=== PATIENT | male | born 1985 | race Caucasian/White ===

== ENCOUNTER 2016-08-19 10:52 | Observation (INO) | payer SELFPAY ==
[~2016-08-19] VITALS: Ht 182.9 cm; Wt 98.9 kg
[~2016-08-19 10:52] MED LIST: CYCL10TA2 PO; DOXY100T PO; HYDR25TA9 PO; IBUP-1007 PO; NAPR500T8 PO; NAPR550T PO; ORPH100T PO
[2016-08-19] MEDS ORDERED: MORPHINE SULFATE 2 MG/ML DISP.SYRIN. IV/SQ PRN (12:45)
[2016-08-19] MEDS ORDERED: NITROGLYCERIN SUBLINGUAL 0.4 MG BOTTLE OF 25. SL PRN (12:45)
--- NOTE | 2016-08-19 12:45 | PHYS DOC ---
Past Medical History Past Medical History: Hypertension, STD Additional Past Medical Histor: HERPES Past Surgical History: No Surgical History Additional Past Surgical Histo: WISDOM TEETH Alcohol Use: Occasionally Drug Use: Marijuana Adult General Chief Complaint Chief Complaint: MULTIPLE COMPLAINTS HPI HPI Patient is a 31 year old male who presents with right armpit discomfort and chest pain for the last 2 days. He states the pain is constant and occasionally gets worse when he gets worse it's severe last 60-90 seconds and then it resolves back to his baseline pain. He states is on the left side doesn't radiate, he doesn't feel nauseated or vomiting or shortness of breath associated with this. He also complains about left knee pain is been going on for last several days. He has a family history with his grandfather having heart disease and his mom have an high blood pressure. He denies any tobacco abuse he does smoke marijuana occasionally and drinks occasionally. He states he does not have a primary care physician and he really doesn't like hospitals her doctors. Review of Systems Review of Systems Constitutional: Denies fever or chills [] Eyes: Denies change in visual acuity, redness, or eye pain [] HENT: Denies nasal congestion or sore throat [] Respiratory: Denies cough or shortness of breath [] Cardiovascular: No additional information not addressed in HPI [] GI: Denies abdominal pain, nausea, vomiting, bloody stools or diarrhea [] : Denies dysuria or hematuria [] Musculoskeletal: Denies back pain or joint pain [] Integument: Denies rash or skin lesions [] Neurologic: Denies headache, focal weakness or sensory changes [] Endocrine: Denies polyuria or polydipsia [] Current Medications Current Medications Current Medications Medications (Trade) Dose Ordered Sig/Serina Start Time Stop Time Status Last Admin Dose Admin Morphine Sulfate 2 mg STK-MED ONCE 08/19/16 13:13 08/19/16 13:20 DC Nitroglycerin (Nitrostat) 0.4 mg STK-MED ONCE 08/19/16 13:13 08/19/16 13:20 DC Allergies Allergies Allergies Coded Allergies Type Severity Reaction Last Updated Verified No Known Drug Allergies 04/19/14 No Physical Exam Physical Exam Constitutional: Well developed, well nourished, no acute distress, non-toxic appearance. [] HENT: Normocephalic, atraumatic, bilateral external ears normal, oropharynx moist, no oral exudates, nose normal. [] Eyes: PERRLA, EOMI, conjunctiva normal, no discharge. [] Neck: Normal range of motion, no tenderness, supple, no stridor. [] Cardiovascular:Heart rate regular rhythm, no murmur [] Lungs & Thorax: Bilateral breath sounds clear to auscultation [] Abdomen: Bowel sounds normal, soft, no tenderness, no masses, no pulsatile masses. [] Skin: Warm, dry, no erythema, no rash. [] Back: No tenderness, no CVA tenderness. [] Extremities: No tenderness, enlarged lymphadenopathy in the right axilla, no erythema noted Yenifer no cyanosis, no clubbing, ROM intact, no edema. [] Neurologic: Alert and oriented X 3, normal motor function, normal sensory function, no focal deficits noted. [] Psychologic: Affect normal, judgement normal, mood normal. [] Current Patient Data Vital Signs Vital Signs Date Time Temp Pulse Resp B/P (MAP) Pulse Ox O2 Delivery O2 Flow Rate FiO2 08/19/16 14:30 70 16 147/88 (107) 98 Room Air 08/19/16 11:37 97.6 97.6 Lab Values Laboratory Tests Test 08/19/16 12:55 White Blood Count 7.1 x10^3/uL (4.0-11.0) Red Blood Count 5.10 x10^6/uL (4.30-5.70) Hemoglobin 15.1 g/dL (13.0-17.5) Hematocrit 43.6 % (39.0-53.0) Mean Corpuscular Volume 86 fL (79-100) Mean Corpuscular Hemoglobin 30 pg (25-35) Mean Corpuscular Hemoglobin Concent 35 g/dL (31-37) Red Cell Distribution Width 13.2 % (11.5-14.5) Platelet Count 255 x10^3/uL (140-400) Neutrophils (%) (Auto) 62 % (31-73) Lymphocytes (%) (Auto) 25 % (24-48) Monocytes (%) (Auto) 8 % (0-9) Eosinophils (%) (Auto) 4 % (0-3) H Basophils (%) (Auto) 1 % (0-3) Neutrophils # (Auto) 4.4 x10^3uL (1.8-7.7) Lymphocytes # (Auto) 1.8 x10^3/uL (1.0-4.8) Monocytes # (Auto) 0.5 x10^3/uL (0.0-1.1) Eosinophils # (Auto) 0.3 x10^3/uL (0.0-0.7) Basophils # (Auto) 0.1 x10^3/uL (0.0-0.2) Urine Collection Type Unknown Urine Color Yellow Urine Clarity Clear Urine pH 6.5 Urine Specific Rus[place] >=1.030 Urine Protein Negative mg/dL (NEG-TRACE) Urine Glucose (UA) Negative mg/dL (NEG) Urine Ketones (Stick) Negative mg/dL (NEG) Urine Blood Negative (NEG) Urine Nitrite Negative (NEG) Urine Bilirubin Negative (NEG) Urine Urobilinogen Dipstick 2.0 mg/dL (0.2 mg/dL) Urine Leukocyte Esterase Negative (NEG) Urine RBC 0 /HPF (0-2) Urine WBC 0 /HPF (0-4) Urine Squamous Epithelial Cells None /LPF Urine Bacteria 0 /HPF (0-FEW) Urine Mucus Slight /LPF Sodium Level 141 mmol/L (136-145) Potassium Level 4.0 mmol/L (3.5-5.1) Chloride Level 103 mmol/L (98-107) Carbon Dioxide Level 30 mmol/L (21-32) Anion Gap 8 (6-14) Blood Urea Nitrogen 15 mg/dL (8-26) Creatinine 0.9 mg/dL (0.7-1.3) Estimated GFR (Cockcroft-Gault) 97.8 Glucose Level 107 mg/dL (70-99) H Calcium Level 9.3 mg/dL (8.5-10.1) Magnesium Level 2.0 mg/dL (1.8-2.4) Total Bilirubin 0.8 mg/dL (0.2-1.0) Direct Bilirubin 0.1 mg/dL (0.0-0.2) Aspartate Amino Transferase (AST) 18 U/L (15-37) Alanine Aminotransferase (ALT) 48 U/L (16-63) Alkaline Phosphatase 85 U/L (46-116) Creatine Kinase 117 U/L (39-308) Creatine Kinase MB (Mass) 0.7 ng/mL (0.0-3.6) Creatine Kinase MB Relative Index 0.6 % (0-4) Troponin I Quantitative < 0.017 ng/mL (0.000-0.055) XE-Cby-I-Type Natriuretic Peptide 11 pg/mL (0-124) Total Protein 7.5 g/dL (6.4-8.2) Albumin 4.0 g/dL (3.4-5.0) Lipase 181 U/L (73-393) Thyroid Stimulating Hormone (TSH) 0.930 uIU/mL (0.358-3.74) Urine Opiates Screen Neg (NEG) Urine Methadone Screen Neg (NEG) Urine Barbiturates Neg (NEG) Urine Phencyclidine Screen Neg (NEG) Urine Amphetamine/Methamphetamine Neg (NEG) Urine Benzodiazepines Screen Neg (NEG) Urine Cocaine Screen Neg (NEG) Urine Cannabinoids Screen Pos (NEG) Urine Ethyl Alcohol Neg (NEG) Laboratory Tests 08/19/16 12:55 Laboratory Tests 08/19/16 12:55 EKG EKG EKG shows sinus rhythm with a rate of [address] elevations or T- wave inversions, normal axis, QTC Radiology/Procedures Radiology/Procedures [place] [id number] IMAGING REPORT Signed PATIENT: KAYA CASEY ACCOUNT: [id number] : 1985 LOCATION: ER AGE: 31 SEX: M EXAM STATUS: REG ER ORD. PHYSICIAN: ROSE CARRASQUILLO MD REASON: pain PROCEDURE: KNEE LEFT 3V Indication: Chronic pain. Time of exam 1355 hours. Alignment is normal. The joint spaces are well maintained. Articular surfaces are smooth. No fracture, dislocation or effusion is seen. Impression: No acute abnormality is detected. DICTATED and SIGNED BY: DEAN CHI MD DATE: 08/19/16 140 CC: ROSE CARRASQUILLO MD; NO PCP ~ [address] [phone] IMAGING REPORT Signed PATIENT: KAYA CASEY ACCOUNT: [id number] : 1985 LOCATION: ER AGE: 31 SEX: M EXAM STATUS: REG ER ORD. PHYSICIAN: ROSE CARRASQUILLO MD REASON: chest pain PROCEDURE: PORTABLE CHEST 1V Indication: Chest pain. Time of exam 1305 hours. FINDINGS: The heart size is normal. The lungs are clear. No pleural effusion or pneumothorax is identified. The pulmonary vascularity is normal. IMPRESSION: No acute abnormality detected. DICTATED and SIGNED BY: DEAN CHI MD DATE: 08/19/16 1401 CC: ROSE CARRASQUILLO MD; NO PCP ~ Impressions: Intermittent chest pain Course & Med Decision Making Course & Med Decision Making Pertinent Labs and Imaging studies reviewed. (See chart for details) Patient is a family history of coronary disease and has never been worked up. He 's been having intermittent episodes and over the last 2 days his become more intense. EKG, labs, chest x-ray nonacute. Patient is being admitted for rule out. Aspirin has been ordered. Dragon Disclaimer Dragon Disclaimer This electronic medical record was generated, in whole or in part, using a voice recognition dictation system. Departure Departure Impression: Primary Impression: Chest pain Disposition: ADMITTED INPATIENT Admitting Physician: Sobeida Merida Condition: STABLE Referrals: NO PCP (PCP) Problem Qualifiers Primary Impression: Chest pain Chest pain type: unspecified Qualified Codes: R07.9 - Chest pain, unspecified ROSE CARRASQUILLO MD Aug 19, 2016 12:45
[2016-08-19 13:13] LABS: BASO # 0.1 x10^3/uL (0.0-0.2); BASO % 1 % (0-3); EOS % 4 % (0-3); HEMATOCRIT 43.6 % (39.0-53.0); HEMOGLOBIN 15.1 g/dL (13.0-17.5); LYMPH # 1.8 x10^3/uL (1.0-4.8); LYMPH % 25 % (24-48); MEAN CORPUSCULAR HEMOGLOBIN 30 pg (25-35); MEAN CORPUSCULAR HGB CONC 35 g/dL (31-37); MEAN CORPUSCULAR VOLUME 86 fL (79-100); MONO % 8 % (0-9); NEUT % 62 % (31-73); PLATELET COUNT 255 x10^3/uL (140-400); RED CELL DISTRIBUTION WIDTH 13.2 % (11.5-14.5); WHITE BLOOD COUNT 7.1 x10^3/uL (4.0-11.0)
[2016-08-19] MEDS ORDERED: NITROGLYCERIN SUBLINGUAL 0.4 MG BOTTLE OF 25. SL ONE (13:13)
[2016-08-19] MEDS ORDERED: MORPHINE SULFATE 2 MG/ML DISP.SYRIN. ONE (13:13)
[2016-08-19 13:17] LABS: BILIRUBIN,URINE NEGATIVE (NEG); GLUCOSE,URINE NEGATIVE (NEG); NITRITE,URINE NEGATIVE (NEG); PH,URINE 6.5; PROTEIN,URINE NEGATIVE (NEG-TRACE)
[2016-08-19 13:20] LABS: BARBITURATES NEG (NEG); BENZODIAZEPINES NEG (NEG); CANNABINOIDS POS (NEG); COCAINE NEG (NEG); METHADONE NEG (NEG); OPIATES NEG (NEG); PHENCYCLIDINE NEG (NEG)
[2016-08-19 13:24] LABS: CALCIUM 9.3 mg/dL (8.5-10.1); CREATININE 0.9 mg/dL (0.7-1.3); GFR 97.8
[2016-08-19 13:26] LABS: DIRECT BILIRUBIN 0.1 mg/dL (0.0-0.2); TOTAL BILIRUBIN 0.8 mg/dL (0.2-1.0); TOTAL PROTEIN 7.5 g/dL (6.4-8.2)
[2016-08-19 13:35] LABS: BACTERIA,URINE 0 /HPF (0-FEW); RBC,URINE 0 /HPF (0-2); WBC,URINE 0 /HPF (0-4)
[2016-08-19 13:37] LABS: CKMB MASS 0.7 ng/mL (0.0-3.6)
--- NOTE | 2016-08-19 13:47 | EKG ---
[facility] [address] [place] [address] Test Date: 2016-08-19 Test Time: 12:27:32 Pat Name: KAYA CASEY Department: Room: Gender: M [employer]: : 1985 Requested By: ROSE CARRASQUILLO Order Number: [id number] Reading MD: Radha Tom Measurements Intervals [place] Rate: 57 P: 34 [place]: 162 QRS: 12 QRSD: 102 T: 24 QT: 386 QTc: 378 Interpretive Statements SINUS RHYTHM INCOMPLETE RIGHT BUNDLE BRANCH BLOCK OTHERWISE NORMAL ECG Electronically Signed On 08-19-2016 21:06:01 CDT by Radha Tom
--- NOTE | 2016-08-19 14:04 | RAD ---
Indication: Chest pain. Time of exam 1305 hours. FINDINGS: The heart size is normal. The lungs are clear. No pleural effusion or pneumothorax is identified. The pulmonary vascularity is normal. IMPRESSION: No acute abnormality detected.
--- NOTE | 2016-08-19 14:10 | RAD ---
Indication: Chronic pain. Time of exam 1355 hours. Alignment is normal. The joint spaces are well maintained. Articular surfaces are smooth. No fracture, dislocation or effusion is seen. Impression: No acute abnormality is detected.
[2016-08-19] MEDS ORDERED: ASPIRIN 325 MG TABLET PO ONE (15:15)
[2016-08-19] MEDS ORDERED: ONDANSETRON PF 4 MG/2 ML VIAL. IV PRN (15:15)
[2016-08-19 17:44] VITALS: BP 160/100
[2016-08-19] MEDS: MORPHINE SULFATE 2 MG/ML DISP.SYRIN. IV PRN ×2 (18:05→23:02)
--- NOTE | 2016-08-19 18:07 | PDOC1 ---
History and Physical Date of Admission Date of Admission DATE: 08/19/16 TIME: 18:06 Identification/Chief Complaint Chief Complaint chest pain Problems: Source Source: Chart review, Patient History of Present Illness History of Present Illness Mr. Elder is a 31 year old male; admit with acute chest pain. Pain started across the right armpit for 2 days. intermittent episodes, sometimes debilitating, and he cannot move for a few minutes due to severe pain. Some episodes for a few minutes, this has happened a couple times this year, he cannot relate to eating or exertion, or supine or time. He does admit to extra stress recently, working 2 jobs, not sleeping well, and anxiety has been high, 2 family members report severe anxiety problems for themselves no diaphoresis, no nausea, no abd pain, no primary care, has not had prior med problems, but has been to the ER here a few times with chest pain and DC home, Past Medical History Cardiovascular: No pertinent hx Pulmonary: No pertinent hx GI: No pertinent hx Heme/Onc: No pertinent hx Hepatobiliary: No pertinent hx Psych: No pertinent hx Musculoskeletal: low back pain Rheumatologic: No pertinent hx Past Surgical History Past Surgical History: No pertinent history Family History Family History: Adopted (at age 7, but has contact with family, strong fam history of CAD, and anxiety) Social History Smoke: No ALCOHOL: none Drugs: Marijuana Current Problem List Problem List Problems Medical Problems: (1) Chest pain Status: Acute Problems: Current Medications Current Medications Current Medications Nitroglycerin (Nitrostat) 0.4 mg PRN Q5MIN PRN SL CP RATING > 1/10 Last administered on 08/19/16 13:21; Start 08/19/16 at 12:45; Stop 08/20/16 at 12:44 Morphine Sulfate 2 mg PRN Q15MIN PRN IV/SQ PAIN GREATER THAN 3/10 Last administered on 08/19/16 13:16; Start 08/19/16 at 12:45; Stop 08/20/16 at 12:44 Nitroglycerin (Nitrostat) 0.4 mg STK-MED ONCE SL ; Start 08/19/16 at 13:13; Stop 08/19/16 at 13:20; Status DC Morphine Sulfate 2 mg STK-MED ONCE .ROUTE ; Start 08/19/16 at 13:13; Stop at 13:20; Status DC Aspirin (Gregory Aspirin) 325 mg 1X ONCE PO Last administered on 08/19/16t 15:20 ; Start 08/19/16 at 15:15; Stop 08/19/16 at 15:19; Status DC Ondansetron HCl (Zofran) 4 mg PRN Q8HRS PRN IV NAUSEA/VOMITING; Start 08/19/16 at 15:15; Stop 08/20/16 at 15:14 Morphine Sulfate 2 mg PRN Q2HR PRN IV PAIN; Start 08/19/16 at 15:15; Stop 08/20 at 15:14 Active Scripts Active Cyclobenzaprine Hcl 10 Mg Tablet 1 Tab PO TID Naproxen 500 Mg Tablet.dr 1 Tab PO BID Doxycycline Hyclate 100 Mg Tablet 1 Tab PO BID Orphenadrine Citrate 100 Mg Tablet.er 100 Mg PO Q12HR Anaprox Ds (Naproxen Sodium) 550 Mg Tablet 550 Mg PO Q12HR Ibuprofen 600 Mg Tablet 600 Mg PO PRN Q6HRS PRN Reported Hydrochlorothiazide Tablet (Hydrochlorothiazide) 25 Mg Tablet 1 Tab PO DAILY Allergies Allergies: Coded Allergies: No Known Drug Allergies (Unverified , 04/19/14) ROS General: No: Chills, Night Sweats, Fatigue, Malaise, Appetite, Other PSYCHOLOGICAL ROS: YES: Anxiety, Sexual abuse, Sleep disturbances, No: Behavioral Disorder, Concentration difficultie, Decreased libido, Depression, Disorientation, Hallucinations, Hostility, Irritablity, Memory difficulties, Mood Swings, Obsessive thoughts Eyes: No Blurry vision, No Decreased vision, No Double vision, No Dry eyes, No Excessive tearing, No Eye Pain, No Itchy Eyes, No Loss of vision, No Photophobia , No Scotomata, No Uses contacts, No Uses glasses, No Other HEENT: YES: Heacaches, No: Visual Changes, Hearing change, Nasal congestion, Nasal discharge, Oral lesions, Sinus pain, Sore Throat, Epistaxis, Sneezing, Snoring, Tinnitus, Vertigo, Vocal changes, Other Respiratory: No: Cough, Hemoptysis, Orthopnea, Pleuritic Pain, Shortness of breath, SOB with excertion, Sputum Changes, Stridor, Tachypnea, Wheezing, Other Cardiovascular: yes Chest Pain, No Palpitations, No Orthopnea, No Paroxysmal Noc. Dyspnea, No Edema, No Lt Headedness, No Other Gastrointestinal: No Nausea, No Vomiting, No Abdominal Pain, No Diarrhea, No Constipation, No Melena, No Hematochezia, No Other Genitourinary: No Dysuria, No Frequency, No Incontinence, No Hematuria, No Retention, No Discharge, No Urgency, No Pain, No Flank Pain, No Other, No , No , No , No , No , No , No Musculoskeletal: Yes Joint Pain (knee and back), Yes Joint Stiffness, No Gait Disturbance, No Joint Swelling, No Muscle Pain, No Muscular Weakness , No Pain In:, No Swelling In:, No Other Neurological: No Behavorial Changes, No Bowel/Bladder ControlChng, No Confusion , No Dizziness, No Gait Disturbance, No Headaches, No Impaired Coord/balance, No Memory Loss, No Numbness/Tingling, No Seizures, No Speech Problems, No Tremors, No Visual Changes, No Weakness, No Other Skin: Yes Dry Skin, No Eczema, No Hair Changes, No Lumps, No Mole Changes, No Mottling, No Nail Changes, No Pruritus, No Rash, No Skin Lesion Changes, No Other, No Acne Physical Exam Physical Exam left bicep tendon tender, left pec muscle tighter than right, General: Alert, Oriented X3, Cooperative, No acute distress HEENT: Atraumatic, PERRLA, EOMI, Mucous membr. moist/pink Lungs: Clear to auscultation, Normal air movement Heart: no gallops, no murmurs Abdomen: Normal bowel sounds, Soft Rectal Exam: not examined Extremities: No edema Skin: No breakdown Neuro: Normal gait, Normal speech, Strength at 5/5 X4 ext (above average strength for age), Normal tone, Sensation intact Psych/Mental Status: Mood NL Vitals Vitals Vital Signs Date Time Temp Pulse Resp B/P (MAP) Pulse Ox O2 Delivery O2 Flow Rate FiO2 08/19/16 17:44 97.7 67 18 160/100 (120) 91 Room Air 97.7 Labs Labs Laboratory Tests Test 08/19/16 12:55 White Blood Count 7.1 x10^3/uL (4.0-11.0) Red Blood Count 5.10 x10^6/uL (4.30-5.70) Hemoglobin 15.1 g/dL (13.0-17.5) Hematocrit 43.6 % (39.0-53.0) Mean Corpuscular Volume 86 fL (79-100) Mean Corpuscular Hemoglobin 30 pg (25-35) Mean Corpuscular Hemoglobin Concent 35 g/dL (31-37) Red Cell Distribution Width 13.2 % (11.5-14.5) Platelet Count 255 x10^3/uL (140-400) Neutrophils (%) (Auto) 62 % (31-73) Lymphocytes (%) (Auto) 25 % (24-48) Monocytes (%) (Auto) 8 % (0-9) Eosinophils (%) (Auto) 4 % (0-3) Basophils (%) (Auto) 1 % (0-3) Neutrophils # (Auto) 4.4 x10^3uL (1.8-7.7) Lymphocytes # (Auto) 1.8 x10^3/uL (1.0-4.8) Monocytes # (Auto) 0.5 x10^3/uL (0.0-1.1) Eosinophils # (Auto) 0.3 x10^3/uL (0.0-0.7) Basophils # (Auto) 0.1 x10^3/uL (0.0-0.2) Urine Collection Type Unknown Urine Color Yellow Urine Clarity Clear Urine pH 6.5 Urine Specific [place] >=1.030 Urine Protein Negative mg/dL (NEG-TRACE) Urine Glucose (UA) Negative mg/dL (NEG) Urine Ketones (Stick) Negative mg/dL (NEG) Urine Blood Negative (NEG) Urine Nitrite Negative (NEG) Urine Bilirubin Negative (NEG) Urine Urobilinogen Dipstick 2.0 mg/dL (0.2 mg/dL) Urine Leukocyte Esterase Negative (NEG) Urine RBC 0 /HPF (0-2) Urine WBC 0 /HPF (0-4) Urine Squamous Epithelial Cells None /LPF Urine Bacteria 0 /HPF (0-FEW) Urine Mucus Slight /LPF Sodium Level 141 mmol/L (136-145) Potassium Level 4.0 mmol/L (3.5-5.1) Chloride Level 103 mmol/L (98-107) Carbon Dioxide Level 30 mmol/L (21-32) Anion Gap 8 (6-14) Blood Urea Nitrogen 15 mg/dL (8-26) Creatinine 0.9 mg/dL (0.7-1.3) Estimated GFR (Cockcroft-Gault) 97.8 Glucose Level 107 mg/dL (70-99) Calcium Level 9.3 mg/dL (8.5-10.1) Magnesium Level 2.0 mg/dL (1.8-2.4) Total Bilirubin 0.8 mg/dL (0.2-1.0) Direct Bilirubin 0.1 mg/dL (0.0-0.2) Aspartate Amino Transf (AST/SGOT) 18 U/L (15-37) Alanine Aminotransferase (ALT/SGPT) 48 U/L (16-63) Alkaline Phosphatase 85 U/L (46-116) Creatine Kinase 117 U/L (39-308) Creatine Kinase MB (Mass) 0.7 ng/mL (0.0-3.6) Creatine Kinase MB Relative Index 0.6 % (0-4) Troponin I Quantitative < 0.017 ng/mL (0.000-0.055) UT-Ptd-O-Type Natriuretic Peptide 11 pg/mL (0-124) Total Protein 7.5 g/dL (6.4-8.2) Albumin 4.0 g/dL (3.4-5.0) Lipase 181 U/L (73-393) Thyroid Stimulating Hormone (TSH) 0.930 uIU/mL (0.358-3.74) Urine Opiates Screen Neg (NEG) Urine Methadone Screen Neg (NEG) Urine Barbiturates Neg (NEG) Urine Phencyclidine Screen Neg (NEG) Urine Amphetamine/Methamphetamine Neg (NEG) Urine Benzodiazepines Screen Neg (NEG) Urine Cocaine Screen Neg (NEG) Urine Cannabinoids Screen Pos (NEG) Urine Ethyl Alcohol Neg (NEG) Laboratory Tests Test 08/19/16 12:55 White Blood Count 7.1 x10^3/uL (4.0-11.0) Red Blood Count 5.10 x10^6/uL (4.30-5.70) Hemoglobin 15.1 g/dL (13.0-17.5) Hematocrit 43.6 % (39.0-53.0) Mean Corpuscular Volume 86 fL (79-100) Mean Corpuscular Hemoglobin 30 pg (25-35) Mean Corpuscular Hemoglobin Concent 35 g/dL (31-37) Red Cell Distribution Width 13.2 % (11.5-14.5) Platelet Count 255 x10^3/uL (140-400) Neutrophils (%) (Auto) 62 % (31-73) Lymphocytes (%) (Auto) 25 % (24-48) Monocytes (%) (Auto) 8 % (0-9) Eosinophils (%) (Auto) 4 % (0-3) Basophils (%) (Auto) 1 % (0-3) Neutrophils # (Auto) 4.4 x10^3uL (1.8-7.7) Lymphocytes # (Auto) 1.8 x10^3/uL (1.0-4.8) Monocytes # (Auto) 0.5 x10^3/uL (0.0-1.1) Eosinophils # (Auto) 0.3 x10^3/uL (0.0-0.7) Basophils # (Auto) 0.1 x10^3/uL (0.0-0.2) Urine Collection Type Unknown Urine Color Yellow Urine Clarity Clear Urine pH 6.5 Urine Specific Weston >=1.030 Urine Protein Negative mg/dL (NEG-TRACE) Urine Glucose (UA) Negative mg/dL (NEG) Urine Ketones (Stick) Negative mg/dL (NEG) Urine Blood Negative (NEG) Urine Nitrite Negative (NEG) Urine Bilirubin Negative (NEG) Urine Urobilinogen Dipstick 2.0 mg/dL (0.2 mg/dL) Urine Leukocyte Esterase Negative (NEG) Urine RBC 0 /HPF (0-2) Urine WBC 0 /HPF (0-4) Urine Squamous Epithelial Cells None /LPF Urine Bacteria 0 /HPF (0-FEW) Urine Mucus Slight /LPF Sodium Level 141 mmol/L (136-145) Potassium Level 4.0 mmol/L (3.5-5.1) Chloride Level 103 mmol/L (98-107) Carbon Dioxide Level 30 mmol/L (21-32) Anion Gap 8 (6-14) Blood Urea Nitrogen 15 mg/dL (8-26) Creatinine 0.9 mg/dL (0.7-1.3) Estimated GFR (Cockcroft-Gault) 97.8 Glucose Level 107 mg/dL (70-99) Calcium Level 9.3 mg/dL (8.5-10.1) Magnesium Level 2.0 mg/dL (1.8-2.4) Total Bilirubin 0.8 mg/dL (0.2-1.0) Direct Bilirubin 0.1 mg/dL (0.0-0.2) Aspartate Amino Transf (AST/SGOT) 18 U/L (15-37) Alanine Aminotransferase (ALT/SGPT) 48 U/L (16-63) Alkaline Phosphatase 85 U/L (46-116) Creatine Kinase 117 U/L (39-308) Creatine Kinase MB (Mass) 0.7 ng/mL (0.0-3.6) Creatine Kinase MB Relative Index 0.6 % (0-4) Troponin I Quantitative < 0.017 ng/mL (0.000-0.055) TZ-Poz-O-Type Natriuretic Peptide 11 pg/mL (0-124) Total Protein 7.5 g/dL (6.4-8.2) Albumin 4.0 g/dL (3.4-5.0) Lipase 181 U/L (73-393) Thyroid Stimulating Hormone (TSH) 0.930 uIU/mL (0.358-3.74) Urine Opiates Screen Neg (NEG) Urine Methadone Screen Neg (NEG) Urine Barbiturates Neg (NEG) Urine Phencyclidine Screen Neg (NEG) Urine Amphetamine/Methamphetamine Neg (NEG) Urine Benzodiazepines Screen Neg (NEG) Urine Cocaine Screen Neg (NEG) Urine Cannabinoids Screen Pos (NEG) Urine Ethyl Alcohol Neg (NEG) VTE Prophylaxis Ordered VTE Prophylaxis Devices: No (obs) VTE Pharmacological Prophylaxi: No Assessment/Plan Assessment/Plan chest pain w/ pressure, intermittent, strong family history of CAD, left shoulder pain to bicep tendon left elbow pain to ulnar nerve worse than on right arm, some tingling in left hand occasionally anxiety, fam. history of anxiety D/O SHAWNEE KATZ MD Aug 19, 2016 18:07
[2016-08-19] MEDS ORDERED: IBUPROFEN 600 MG TABLET. PO ONE (18:30)
[2016-08-19 19:00] VITALS: BP 137/68
[2016-08-19 23:00] VITALS: BP 131/71
[2016-08-20 03:00] VITALS: BP 132/83
[2016-08-20 05:04] LABS: BASO % 0 % (0-3); EOS % 6 % (0-3); HEMATOCRIT 41.7 % (39.0-53.0); HEMOGLOBIN 14.2 g/dL (13.0-17.5); LYMPH # 2.6 x10^3/uL (1.0-4.8); LYMPH % 42 % (24-48); MEAN CORPUSCULAR HEMOGLOBIN 29 pg (25-35); MEAN CORPUSCULAR HGB CONC 34 g/dL (31-37); MEAN CORPUSCULAR VOLUME 86 fL (79-100); MONO % 9 % (0-9); NEUT % 43 % (31-73); PLATELET COUNT 221 x10^3/uL (140-400); RED BLOOD COUNT 4.84 x10^6/uL (4.30-5.70); RED CELL DISTRIBUTION WIDTH 13.3 % (11.5-14.5); WHITE BLOOD COUNT 6.1 x10^3/uL (4.0-11.0)
[2016-08-20 05:23] LABS: CHOLESTEROL/HDL RATIO 4.7
[2016-08-20 05:47] LABS: CALCIUM 8.9 mg/dL (8.5-10.1); CREATININE 0.8 mg/dL (0.7-1.3)
[2016-08-20 07:00] VITALS: BP 140/86
[2016-08-20] MEDS: MORPHINE SULFATE 2 MG/ML DISP.SYRIN. IV PRN (08:12)
[2016-08-20] MEDS ORDERED: MORPHINE SULFATE 2 MG/ML DISP.SYRIN. IV PRN (09:45)
[2016-08-20] MEDS ORDERED: ACETAMINOPHEN 325 MG TABLET. PO PRN (09:45)
[2016-08-20] MEDS ORDERED: DOCUSATE SODIUM 100 MG CAPSULE. PO PRN (09:45)
[2016-08-20] MEDS ORDERED: hydrALAZINE 20 MG/ML VIAL. IVP PRN (09:45)
[2016-08-20] MEDS ORDERED: ONDANSETRON PF 4 MG/2 ML VIAL. IV PRN (09:45)
[2016-08-20] MEDS ORDERED: traMADol 50 MG TABLET PO PRN (09:45)
[2016-08-20 10:40] VITALS: BP 124/82
--- NOTE | 2016-08-20 10:46 | PDOC2 ---
CARDIAC CONSULT DATE OF CONSULT Date of Consult DATE: 08/20/16 TIME: 10:43 REASON FOR CONSULT Reason for Consult: Chest Pain REFERRING PHYSICIAN Referring Physician: Dr. Merida SOURCE Source: Chart review, Patient HISTORY OF PRESENT ILLNESS HISTORY OF PRESENT ILLNESS This is a 31 yo male who presented with complaints of chest pain. Patient reports pain has been occurring intermittently for the last year and a half or so. Located in the central chest and also in the left axillary region. Describes as stabbing in nature. Associated with shortness of breath, vision changes, and palpitations. No dizziness, diaphoresis, or nausea/vomiting. No clear precipitating factors. No exacerbating factors. Episodes generally last a couple of minutes and seem to resolve by "crouching down in a ball." Reports increased stress has been working three jobs to make ends meet. Has 3 children, which he does not presently have custody of. PAST MEDICAL HISTORY Cardiovascular: HTN Pulmonary: No pertinent hx GI: No pertinent hx Heme/Onc: No pertinent hx Hepatobiliary: No pertinent hx Psych: No pertinent hx Rheumatologic: No pertinent hx Infectious disease: No pertinent hx ENT: No pertinent hx Renal/: No pertinent hx Endocrine: No pertinent hx Dermatology: No pertinent hx PAST SURGICAL HISTORY Past Surgical History: No pertinent history FAMILY HISTORY Family History: Diabetes, Hypertension SOCIAL HISTORY Smoke: No ALCOHOL: none Drugs: Marijuana Lives: Alone CURRENT MEDICATIONS CURRENT MEDICATIONS Current Medications Medications (Trade) Dose Ordered Sig/Serina Route PRN Reason Start Time Stop Time Status Last Admin Dose Admin Nitroglycerin (Nitrostat) 0.4 mg PRN Q5MIN PRN SL CP RATING > 1/10 08/19/16 12:45 08/20/16 12:44 08/19/16 13:21 Morphine Sulfate 2 mg PRN Q15MIN PRN IV/SQ PAIN GREATER THAN 3/10 08/19/16 12:45 08/20/16 09:46 DC 08/19/16 13:16 Aspirin (Gregory Aspirin) 325 mg 1X ONCE PO 08/19/16 15:15 08/19/16 15:19 DC 08/19/16 15:20 Ondansetron HCl (Zofran) 4 mg PRN Q8HRS PRN IV NAUSEA/VOMITING 08/19/16 15:15 08/20/16 15:14 08/19/16 18:08 Morphine Sulfate 2 mg PRN Q2HR PRN IV PAIN 08/19/16 15:15 08/20/16 09:46 DC 08/20/16 08:12 Ibuprofen (Motrin) 600 mg 1X ONCE PO 08/19/16 18:30 08/19/16 18:43 DC 08/19/16 20:27 ALLERGIES ALLERGIES: Coded Allergies: No Known Drug Allergies (Unverified , 04/19/14) ROS Review of System 14 point ROS conducted with pertinent positives noted above in HPI. PHYSICAL EXAM General: Alert, Oriented X3, Cooperative, No acute distress HEENT: Atraumatic, Mucous membr. moist/pink Lungs: Clear to auscultation, Normal air movement Heart: Regular rate, Normal S1, Normal S2, No murmurs, Other (left chest/ailla region with tenderness upon palpation) Extremities: No edema, Normal pulses Skin: No breakdown, No significant lesion Neuro: Normal speech, Sensation intact Psych/Mental Status: Mental status NL, Mood NL MUSCULOSKELETAL: Osteoarthritic changes both hands VITALS VITALS Vital Signs Date Time Temp Pulse Resp B/P (MAP) Pulse Ox O2 Delivery O2 Flow Rate FiO2 08/20/16 10:40 97.5 72 18 124/82 (96) 97 Room Air 97.5 LABS Lab: Laboratory Tests Test 08/19/16 12:55 08/19/16 21:20 08/20/16 03:40 White Blood Count 7.1 x10^3/uL (4.0-11.0) 6.1 x10^3/uL (4.0-11.0) Red Blood Count 5.10 x10^6/uL (4.30-5.70) 4.84 x10^6/uL (4.30-5.70) Hemoglobin 15.1 g/dL (13.0-17.5) 14.2 g/dL (13.0-17.5) Hematocrit 43.6 % (39.0-53.0) 41.7 % (39.0-53.0) Mean Corpuscular Volume 86 fL (79-100) 86 fL (79-100) Mean Corpuscular Hemoglobin 30 pg (25-35) 29 pg (25-35) Mean Corpuscular Hemoglobin Concent 35 g/dL (31-37) 34 g/dL (31-37) Red Cell Distribution Width 13.2 % (11.5-14.5) 13.3 % (11.5-14.5) Platelet Count 255 x10^3/uL (140-400) 221 x10^3/uL (140-400) Neutrophils (%) (Auto) 62 % (31-73) 43 % (31-73) Lymphocytes (%) (Auto) 25 % (24-48) 42 % (24-48) Monocytes (%) (Auto) 8 % (0-9) 9 % (0-9) Eosinophils (%) (Auto) 4 % (0-3) 6 % (0-3) Basophils (%) (Auto) 1 % (0-3) 0 % (0-3) Neutrophils # (Auto) 4.4 x10^3uL (1.8-7.7) 2.7 x10^3uL (1.8-7.7) Lymphocytes # (Auto) 1.8 x10^3/uL (1.0-4.8) 2.6 x10^3/uL (1.0-4.8) Monocytes # (Auto) 0.5 x10^3/uL (0.0-1.1) 0.5 x10^3/uL (0.0-1.1) Eosinophils # (Auto) 0.3 x10^3/uL (0.0-0.7) 0.4 x10^3/uL (0.0-0.7) Basophils # (Auto) 0.1 x10^3/uL (0.0-0.2) 0.0 x10^3/uL (0.0-0.2) Urine Collection Type Unknown Urine Color Yellow Urine Clarity Clear Urine pH 6.5 Urine Specific [place] >=1.030 Urine Protein Negative mg/dL (NEG-TRACE) Urine Glucose (UA) Negative mg/dL (NEG) Urine Ketones (Stick) Negative mg/dL (NEG) Urine Blood Negative (NEG) Urine Nitrite Negative (NEG) Urine Bilirubin Negative (NEG) Urine Urobilinogen Dipstick 2.0 mg/dL (0.2 mg/dL) Urine Leukocyte Esterase Negative (NEG) Urine RBC 0 /HPF (0-2) Urine WBC 0 /HPF (0-4) Urine Squamous Epithelial Cells None /LPF Urine Bacteria 0 /HPF (0-FEW) Urine Mucus Slight /LPF Sodium Level 141 mmol/L (136-145) 141 mmol/L (136-145) Potassium Level 4.0 mmol/L (3.5-5.1) 4.0 mmol/L (3.5-5.1) Chloride Level 103 mmol/L (98-107) 105 mmol/L (98-107) Carbon Dioxide Level 30 mmol/L (21-32) 29 mmol/L (21-32) Anion Gap 8 (6-14) 7 (6-14) Blood Urea Nitrogen 15 mg/dL (8-26) 14 mg/dL (8-26) Creatinine 0.9 mg/dL (0.7-1.3) 0.8 mg/dL (0.7-1.3) Estimated GFR (Cockcroft-Gault) 97.8 112.0 Glucose Level 107 mg/dL (70-99) 88 mg/dL (70-99) Calcium Level 9.3 mg/dL (8.5-10.1) 8.9 mg/dL (8.5-10.1) Magnesium Level 2.0 mg/dL (1.8-2.4) Total Bilirubin 0.8 mg/dL (0.2-1.0) Direct Bilirubin 0.1 mg/dL (0.0-0.2) Aspartate Amino Transf (AST/SGOT) 18 U/L (15-37) Alanine Aminotransferase (ALT/SGPT) 48 U/L (16-63) Alkaline Phosphatase 85 U/L (46-116) Creatine Kinase 117 U/L (39-308) Creatine Kinase MB (Mass) 0.7 ng/mL (0.0-3.6) Creatine Kinase MB Relative Index 0.6 % (0-4) Troponin I Quantitative < 0.017 ng/mL (0.000-0.055) < 0.017 ng/mL (0.000-0.055) < 0.017 ng/mL (0.000-0.055) GZ-Nas-U-Type Natriuretic Peptide 11 pg/mL (0-124) Total Protein 7.5 g/dL (6.4-8.2) Albumin 4.0 g/dL (3.4-5.0) Lipase 181 U/L (73-393) Thyroid Stimulating Hormone (TSH) 0.930 uIU/mL (0.358-3.74) Urine Opiates Screen Neg (NEG) Urine Methadone Screen Neg (NEG) Urine Barbiturates Neg (NEG) Urine Phencyclidine Screen Neg (NEG) Urine Amphetamine/Methamphetamine Neg (NEG) Urine Benzodiazepines Screen Neg (NEG) Urine Cocaine Screen Neg (NEG) Urine Cannabinoids Screen Pos (NEG) Urine Ethyl Alcohol Neg (NEG) Triglycerides Level 79 mg/dL (0-150) Cholesterol Level 199 mg/dL (0-200) LDL Cholesterol, Calculated 141 mg/dL (0-100) VLDL Cholesterol, Calculated 16 mg/dL (0-40) Non-HDL Cholesterol Calculated 157 mg/dL (0-129) HDL Cholesterol 42 mg/dL (40-60) Cholesterol/HDL Ratio 4.7 ASSESSMENT/PLAN ASSESSMENT/PLAN 1. Chest pain, atypical; troponin series normal; AMI ruled out. 2. Hypertension; controlled 3. Hyperlipidemia Recommendations Case discussed with primary joss house keeper. Suspect symptoms are anxiety related but given his risk factors, will obtain echocardiogram and stress echo to assess LV function and r/o ischemia Resume HCTZ. Diet/lifestyle modification. Problems: THOMAS RED APRN Aug 20, 2016 10:46
--- NOTE | 2016-08-20 10:47 | PDOC2 ---
CONSULT Date of Consult Date of Consult DATE: 08/20/16 TIME: 10:28 Reason for Consult Reason for Consult: rehab evaluation about his left shoulder and knee pain Referring Physician Referring Physician: Identification/Chief Complaint Chief Complaint Pain left shoulder and chest wall for the last few days and also pain left knee with occasional giving up sensation. 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 Past Medical History Cardiovascular: No pertinent hx Pulmonary: No pertinent hx GI: No pertinent hx Heme/Onc: No pertinent hx Hepatobiliary: No pertinent hx Psych: No pertinent hx Musculoskeletal: low back pain, Other (left knee pain and he used to get steroid injections as he was told by his mother.) Rheumatologic: No pertinent hx Past Surgical History Past Surgical History: No pertinent history Family History Family History: Adopted (at age 7, but has contact with family, strong fam history of CAD, and anxiety) Social History No ALCOHOL: none Drugs: Marijuana Current Problem List Problem List Problems Medical Problems: (1) Chest pain Status: Acute Current Medications Current Medications Current Medications Nitroglycerin (Nitrostat) 0.4 mg PRN Q5MIN PRN SL CP RATING > 1/10 Last administered on 08/19/16 13:21; Start 08/19/16 at 12:45; Stop 08/20/16 at 12:44 Morphine Sulfate 2 mg PRN Q15MIN PRN IV/SQ PAIN GREATER THAN 3/10 Last administered on 08/19/16 13:16; Start 08/19/16 at 12:45; Stop 08/20/16 at 09:46 ; Status DC Nitroglycerin (Nitrostat) 0.4 mg STK-MED ONCE SL ; Start 08/19/16 at 13:13; Stop 08/19/16 at 13:20; Status DC Morphine Sulfate 2 mg STK-MED ONCE .ROUTE ; Start 08/19/16 at 13:13; Stop at 13:20; Status DC Aspirin (Gregory Aspirin) 325 mg 1X ONCE PO Last administered on 08/19/16 15:20 ; Start 08/19/16 at 15:15; Stop 08/19/16 at 15:19; Status DC Ondansetron HCl (Zofran) 4 mg PRN Q8HRS PRN IV NAUSEA/VOMITING Last administered on 08/19/16 18:08; Start 08/19/16 at 15:15; Stop 08/20/16 at 15:14 Morphine Sulfate 2 mg PRN Q2HR PRN IV PAIN Last administered on 08/20/16 08:12 ; Start 08/19/16 at 15:15; Stop 08/20/16 at 09:46; Status DC Ibuprofen (Motrin) 600 mg 1X ONCE PO Last administered on 08/19/16 20:27; Start 08/19/16 at 18:30; Stop 08/19/16 at 18:43; Status DC Ibuprofen (Motrin) 400 mg PRN Q6HRS PRN PO INFLAMMATION; Start 08/19/16 at 18: 30 Acetaminophen (Tylenol) 650 mg PRN Q6HRS PRN PO FEVER; Start 08/20/16 at 09:45 Ondansetron HCl (Zofran) 4 mg PRN Q6HRS PRN IV NAUSEA/VOMITING; Start 08/20/16 at 09:45 Morphine Sulfate 2 mg PRN Q2HR PRN IV PAIN; Start 08/20/16 at 09:45 Tramadol HCl (Ultram) 50 mg PRN Q6HRS PRN PO PAIN; Start 08/20/16 at 09:45 Hydralazine HCl (Apresoline) 10 mg PRN Q4HRS PRN IVP ELEVATED BP, SEE COMMENTS ; Start 08/20/16 at 09:45 Docusate Sodium (Colace) 100 mg PRN DAILY PRN PO CONSTIPATION; Start 08/20/16 at 09:45 Active Scripts Active Cyclobenzaprine Hcl 10 Mg Tablet 1 Tab PO TID Naproxen 500 Mg Tablet.dr 1 Tab PO BID Doxycycline Hyclate 100 Mg Tablet 1 Tab PO BID Orphenadrine Citrate 100 Mg Tablet.er 100 Mg PO Q12HR Anaprox Ds (Naproxen Sodium) 550 Mg Tablet 550 Mg PO Q12HR Ibuprofen 600 Mg Tablet 600 Mg PO PRN Q6HRS PRN Reported Hydrochlorothiazide Tablet (Hydrochlorothiazide) 25 Mg Tablet 1 Tab PO DAILY Allergies Allergies: Coded Allergies: No Known Drug Allergies (Unverified , 04/19/14) ROS General: YES: Other (He denies any numbness or weakness in his extremities.) Physical Exam General: Alert, Oriented X3, Cooperative, No acute distress HEENT: Atraumatic Lungs: Clear to auscultation, Normal air movement Heart: Regular rate, Normal S1, Normal S2, No murmurs Abdomen: Normal bowel sounds, Soft, No tenderness, No hepatosplenomegaly, No masses Extremities: No clubbing, No cyanosis, No edema, Normal pulses, No tenderness/ swelling, Other (He had tenderness to palpation over left shoulder anterior aspect,over left pectoral muscles and over left sternoclavicular joint.He had mild crepitus on ROM of left knee without any effusion or laxity of knee joint collateral ligaments or tenderness to palpation.) Vitals VITALS Vital Signs Date Time Temp Pulse Resp B/P (MAP) Pulse Ox O2 Delivery O2 Flow Rate FiO2 08/20/16 07:00 98.2 60 18 140/86 (104) 98 Room Air 98.2 Labs Labs Laboratory Tests Test 08/19/16 12:55 08/19/16 21:20 08/20/16 03:40 White Blood Count 7.1 x10^3/uL (4.0-11.0) 6.1 x10^3/uL (4.0-11.0) Red Blood Count 5.10 x10^6/uL (4.30-5.70) 4.84 x10^6/uL (4.30-5.70) Hemoglobin 15.1 g/dL (13.0-17.5) 14.2 g/dL (13.0-17.5) Hematocrit 43.6 % (39.0-53.0) 41.7 % (39.0-53.0) Mean Corpuscular Volume 86 fL (79-100) 86 fL (79-100) Mean Corpuscular Hemoglobin 30 pg (25-35) 29 pg (25-35) Mean Corpuscular Hemoglobin Concent 35 g/dL (31-37) 34 g/dL (31-37) Red Cell Distribution Width 13.2 % (11.5-14.5) 13.3 % (11.5-14.5) Platelet Count 255 x10^3/uL (140-400) 221 x10^3/uL (140-400) Neutrophils (%) (Auto) 62 % (31-73) 43 % (31-73) Lymphocytes (%) (Auto) 25 % (24-48) 42 % (24-48) Monocytes (%) (Auto) 8 % (0-9) 9 % (0-9) Eosinophils (%) (Auto) 4 % (0-3) 6 % (0-3) Basophils (%) (Auto) 1 % (0-3) 0 % (0-3) Neutrophils # (Auto) 4.4 x10^3uL (1.8-7.7) 2.7 x10^3uL (1.8-7.7) Lymphocytes # (Auto) 1.8 x10^3/uL (1.0-4.8) 2.6 x10^3/uL (1.0-4.8) Monocytes # (Auto) 0.5 x10^3/uL (0.0-1.1) 0.5 x10^3/uL (0.0-1.1) Eosinophils # (Auto) 0.3 x10^3/uL (0.0-0.7) 0.4 x10^3/uL (0.0-0.7) Basophils # (Auto) 0.1 x10^3/uL (0.0-0.2) 0.0 x10^3/uL (0.0-0.2) Urine Collection Type Unknown Urine Color Yellow Urine Clarity Clear Urine pH 6.5 Urine Specific [place] >=1.030 Urine Protein Negative mg/dL (NEG-TRACE) Urine Glucose (UA) Negative mg/dL (NEG) Urine Ketones (Stick) Negative mg/dL (NEG) Urine Blood Negative (NEG) Urine Nitrite Negative (NEG) Urine Bilirubin Negative (NEG) Urine Urobilinogen Dipstick 2.0 mg/dL (0.2 mg/dL) Urine Leukocyte Esterase Negative (NEG) Urine RBC 0 /HPF (0-2) Urine WBC 0 /HPF (0-4) Urine Squamous Epithelial Cells None /LPF Urine Bacteria 0 /HPF (0-FEW) Urine Mucus Slight /LPF Sodium Level 141 mmol/L (136-145) 141 mmol/L (136-145) Potassium Level 4.0 mmol/L (3.5-5.1) 4.0 mmol/L (3.5-5.1) Chloride Level 103 mmol/L (98-107) 105 mmol/L (98-107) Carbon Dioxide Level 30 mmol/L (21-32) 29 mmol/L (21-32) Anion Gap 8 (6-14) 7 (6-14) Blood Urea Nitrogen 15 mg/dL (8-26) 14 mg/dL (8-26) Creatinine 0.9 mg/dL (0.7-1.3) 0.8 mg/dL (0.7-1.3) Estimated GFR (Cockcroft-Gault) 97.8 112.0 Glucose Level 107 mg/dL (70-99) 88 mg/dL (70-99) Calcium Level 9.3 mg/dL (8.5-10.1) 8.9 mg/dL (8.5-10.1) Magnesium Level 2.0 mg/dL (1.8-2.4) Total Bilirubin 0.8 mg/dL (0.2-1.0) Direct Bilirubin 0.1 mg/dL (0.0-0.2) Aspartate Amino Transf (AST/SGOT) 18 U/L (15-37) Alanine Aminotransferase (ALT/SGPT) 48 U/L (16-63) Alkaline Phosphatase 85 U/L (46-116) Creatine Kinase 117 U/L (39-308) Creatine Kinase MB (Mass) 0.7 ng/mL (0.0-3.6) Creatine Kinase MB Relative Index 0.6 % (0-4) Troponin I Quantitative < 0.017 ng/mL (0.000-0.055) < 0.017 ng/mL (0.000-0.055) < 0.017 ng/mL (0.000-0.055) PJ-Lee-H-Type Natriuretic Peptide 11 pg/mL (0-124) Total Protein 7.5 g/dL (6.4-8.2) Albumin 4.0 g/dL (3.4-5.0) Lipase 181 U/L (73-393) Thyroid Stimulating Hormone (TSH) 0.930 uIU/mL (0.358-3.74) Urine Opiates Screen Neg (NEG) Urine Methadone Screen Neg (NEG) Urine Barbiturates Neg (NEG) Urine Phencyclidine Screen Neg (NEG) Urine Amphetamine/Methamphetamine Neg (NEG) Urine Benzodiazepines Screen Neg (NEG) Urine Cocaine Screen Neg (NEG) Urine Cannabinoids Screen Pos (NEG) Urine Ethyl Alcohol Neg (NEG) Triglycerides Level 79 mg/dL (0-150) Cholesterol Level 199 mg/dL (0-200) LDL Cholesterol, Calculated 141 mg/dL (0-100) VLDL Cholesterol, Calculated 16 mg/dL (0-40) Non-HDL Cholesterol Calculated 157 mg/dL (0-129) HDL Cholesterol 42 mg/dL (40-60) Cholesterol/HDL Ratio 4.7 Laboratory Tests Test 08/19/16 12:55 08/19/16 21:20 08/20/16 03:40 White Blood Count 7.1 x10^3/uL (4.0-11.0) 6.1 x10^3/uL (4.0-11.0) Red Blood Count 5.10 x10^6/uL (4.30-5.70) 4.84 x10^6/uL (4.30-5.70) Hemoglobin 15.1 g/dL (13.0-17.5) 14.2 g/dL (13.0-17.5) Hematocrit 43.6 % (39.0-53.0) 41.7 % (39.0-53.0) Mean Corpuscular Volume 86 fL (79-100) 86 fL (79-100) Mean Corpuscular Hemoglobin 30 pg (25-35) 29 pg (25-35) Mean Corpuscular Hemoglobin Concent 35 g/dL (31-37) 34 g/dL (31-37) Red Cell Distribution Width 13.2 % (11.5-14.5) 13.3 % (11.5-14.5) Platelet Count 255 x10^3/uL (140-400) 221 x10^3/uL (140-400) Neutrophils (%) (Auto) 62 % (31-73) 43 % (31-73) Lymphocytes (%) (Auto) 25 % (24-48) 42 % (24-48) Monocytes (%) (Auto) 8 % (0-9) 9 % (0-9) Eosinophils (%) (Auto) 4 % (0-3) 6 % (0-3) Basophils (%) (Auto) 1 % (0-3) 0 % (0-3) Neutrophils # (Auto) 4.4 x10^3uL (1.8-7.7) 2.7 x10^3uL (1.8-7.7) Lymphocytes # (Auto) 1.8 x10^3/uL (1.0-4.8) 2.6 x10^3/uL (1.0-4.8) Monocytes # (Auto) 0.5 x10^3/uL (0.0-1.1) 0.5 x10^3/uL (0.0-1.1) Eosinophils # (Auto) 0.3 x10^3/uL (0.0-0.7) 0.4 x10^3/uL (0.0-0.7) Basophils # (Auto) 0.1 x10^3/uL (0.0-0.2) 0.0 x10^3/uL (0.0-0.2) Urine Collection Type Unknown Urine Color Yellow Urine Clarity Clear Urine pH 6.5 Urine Specific [place] >=1.030 Urine Protein Negative mg/dL (NEG-TRACE) Urine Glucose (UA) Negative mg/dL (NEG) Urine Ketones (Stick) Negative mg/dL (NEG) Urine Blood Negative (NEG) Urine Nitrite Negative (NEG) Urine Bilirubin Negative (NEG) Urine Urobilinogen Dipstick 2.0 mg/dL (0.2 mg/dL) Urine Leukocyte Esterase Negative (NEG) Urine RBC 0 /HPF (0-2) Urine WBC 0 /HPF (0-4) Urine Squamous Epithelial Cells None /LPF Urine Bacteria 0 /HPF (0-FEW) Urine Mucus Slight /LPF Sodium Level 141 mmol/L (136-145) 141 mmol/L (136-145) Potassium Level 4.0 mmol/L (3.5-5.1) 4.0 mmol/L (3.5-5.1) Chloride Level 103 mmol/L (98-107) 105 mmol/L (98-107) Carbon Dioxide Level 30 mmol/L (21-32) 29 mmol/L (21-32) Anion Gap 8 (6-14) 7 (6-14) Blood Urea Nitrogen 15 mg/dL (8-26) 14 mg/dL (8-26) Creatinine 0.9 mg/dL (0.7-1.3) 0.8 mg/dL (0.7-1.3) Estimated GFR (Cockcroft-Gault) 97.8 112.0 Glucose Level 107 mg/dL (70-99) 88 mg/dL (70-99) Calcium Level 9.3 mg/dL (8.5-10.1) 8.9 mg/dL (8.5-10.1) Magnesium Level 2.0 mg/dL (1.8-2.4) Total Bilirubin 0.8 mg/dL (0.2-1.0) Direct Bilirubin 0.1 mg/dL (0.0-0.2) Aspartate Amino Transf (AST/SGOT) 18 U/L (15-37) Alanine Aminotransferase (ALT/SGPT) 48 U/L (16-63) Alkaline Phosphatase 85 U/L (46-116) Creatine Kinase 117 U/L (39-308) Creatine Kinase MB (Mass) 0.7 ng/mL (0.0-3.6) Creatine Kinase MB Relative Index 0.6 % (0-4) Troponin I Quantitative < 0.017 ng/mL (0.000-0.055) < 0.017 ng/mL (0.000-0.055) < 0.017 ng/mL (0.000-0.055) BN-Jre-A-Type Natriuretic Peptide 11 pg/mL (0-124) Total Protein 7.5 g/dL (6.4-8.2) Albumin 4.0 g/dL (3.4-5.0) Lipase 181 U/L (73-393) Thyroid Stimulating Hormone (TSH) 0.930 uIU/mL (0.358-3.74) Urine Opiates Screen Neg (NEG) Urine Methadone Screen Neg (NEG) Urine Barbiturates Neg (NEG) Urine Phencyclidine Screen Neg (NEG) Urine Amphetamine/Methamphetamine Neg (NEG) Urine Benzodiazepines Screen Neg (NEG) Urine Cocaine Screen Neg (NEG) Urine Cannabinoids Screen Pos (NEG) Urine Ethyl Alcohol Neg (NEG) Triglycerides Level 79 mg/dL (0-150) Cholesterol Level 199 mg/dL (0-200) LDL Cholesterol, Calculated 141 mg/dL (0-100) VLDL Cholesterol, Calculated 16 mg/dL (0-40) Non-HDL Cholesterol Calculated 157 mg/dL (0-129) HDL Cholesterol 42 mg/dL (40-60) Cholesterol/HDL Ratio 4.7 Assessment/Plan Assessment/Plan Sprain,left sternoclavicular joint with associated bicipital tendinitis left shoulder and muscle strain left pectoral muscles and no evidence of rotator cuff lesion and early DJD of left knee. Recommendations:I have instructed him to avoid any activity that irritated left sternoclavicular joint and shoulder like handling heavy weights and repetitive and over head use of left shoulder and in Codman's exercises to left shoulder after use of physical modalities and isometric strengthening to his left quadriceps muscles and he should benefit from taking NSAIDs regularly and analgesics as needed. I will be glad to see him for follow up on as needed basis and he can be discharged to home when medically stable. BRANDON GARCIA MD Aug 20, 2016 10:47
[2016-08-20] MEDS: NAPROXEN 500 MG TABLET PO SCH ×2 (11:39→20:41)
--- NOTE | 2016-08-20 11:55 | PDOC ---
PROGRESS NOTES Chief Complaint Chief Complaint chest pain w/ pressure, intermittent, likely 2/2 muscular skeletal pain left shoulder pain with tendonitis/muscle sprain bl fingers numbness, 2/2 carpel tunnel syndrome/neuropathy anxiety plan: fu with dr. Cruz, card pt is very anxious about his family history of CAD,quit smoking , alcohol for 2 weeks, quit marijuana for 2 weeks, but + in drug tox cont NSAIDS pain control no PCP, dosenot want to leave hosp dc tmr History of Present Illness History of Present Illness very anxious labor work with muscle pain, bl fingers numbness Vitals Vitals Vital Signs Date Time Temp Pulse Resp B/P (MAP) Pulse Ox O2 Delivery O2 Flow Rate FiO2 08/20/16 10:40 97.5 72 18 124/82 (96) 97 Room Air 97.5 Physical Exam Physical Exam chest wall tenderness, left shoulder tenderness General: Alert, Oriented X3, Cooperative, No acute distress Heart: Regular rate, Normal S1, Normal S2, No murmurs Lungs: Clear Abdomen: Normal bowel sounds, Soft, No tenderness, No hepatosplenomegaly, No masses Extremities: No clubbing, No cyanosis, No edema, Normal pulses, No tenderness/ swelling, Other (He had tenderness to palpation over left shoulder anterior aspect,over left pectoral muscles and over left sternoclavicular joint.He had mild crepitus on ROM of left knee without any effusion or laxity of knee joint collateral ligaments or tenderness to palpation.) Skin: No breakdown Labs LABS Laboratory Tests Test 08/19/16 12:55 08/19/16 21:20 08/20/16 03:40 White Blood Count 7.1 x10^3/uL (4.0-11.0) 6.1 x10^3/uL (4.0-11.0) Red Blood Count 5.10 x10^6/uL (4.30-5.70) 4.84 x10^6/uL (4.30-5.70) Hemoglobin 15.1 g/dL (13.0-17.5) 14.2 g/dL (13.0-17.5) Hematocrit 43.6 % (39.0-53.0) 41.7 % (39.0-53.0) Mean Corpuscular Volume 86 fL (79-100) 86 fL (79-100) Mean Corpuscular Hemoglobin 30 pg (25-35) 29 pg (25-35) Mean Corpuscular Hemoglobin Concent 35 g/dL (31-37) 34 g/dL (31-37) Red Cell Distribution Width 13.2 % (11.5-14.5) 13.3 % (11.5-14.5) Platelet Count 255 x10^3/uL (140-400) 221 x10^3/uL (140-400) Neutrophils (%) (Auto) 62 % (31-73) 43 % (31-73) Lymphocytes (%) (Auto) 25 % (24-48) 42 % (24-48) Monocytes (%) (Auto) 8 % (0-9) 9 % (0-9) Eosinophils (%) (Auto) 4 % (0-3) 6 % (0-3) Basophils (%) (Auto) 1 % (0-3) 0 % (0-3) Neutrophils # (Auto) 4.4 x10^3uL (1.8-7.7) 2.7 x10^3uL (1.8-7.7) Lymphocytes # (Auto) 1.8 x10^3/uL (1.0-4.8) 2.6 x10^3/uL (1.0-4.8) Monocytes # (Auto) 0.5 x10^3/uL (0.0-1.1) 0.5 x10^3/uL (0.0-1.1) Eosinophils # (Auto) 0.3 x10^3/uL (0.0-0.7) 0.4 x10^3/uL (0.0-0.7) Basophils # (Auto) 0.1 x10^3/uL (0.0-0.2) 0.0 x10^3/uL (0.0-0.2) Urine Collection Type Unknown Urine Color Yellow Urine Clarity Clear Urine pH 6.5 Urine Specific [place] >=1.030 Urine Protein Negative mg/dL (NEG-TRACE) Urine Glucose (UA) Negative mg/dL (NEG) Urine Ketones (Stick) Negative mg/dL (NEG) Urine Blood Negative (NEG) Urine Nitrite Negative (NEG) Urine Bilirubin Negative (NEG) Urine Urobilinogen Dipstick 2.0 mg/dL (0.2 mg/dL) Urine Leukocyte Esterase Negative (NEG) Urine RBC 0 /HPF (0-2) Urine WBC 0 /HPF (0-4) Urine Squamous Epithelial Cells None /LPF Urine Bacteria 0 /HPF (0-FEW) Urine Mucus Slight /LPF Sodium Level 141 mmol/L (136-145) 141 mmol/L (136-145) Potassium Level 4.0 mmol/L (3.5-5.1) 4.0 mmol/L (3.5-5.1) Chloride Level 103 mmol/L (98-107) 105 mmol/L (98-107) Carbon Dioxide Level 30 mmol/L (21-32) 29 mmol/L (21-32) Anion Gap 8 (6-14) 7 (6-14) Blood Urea Nitrogen 15 mg/dL (8-26) 14 mg/dL (8-26) Creatinine 0.9 mg/dL (0.7-1.3) 0.8 mg/dL (0.7-1.3) Estimated GFR (Cockcroft-Gault) 97.8 112.0 Glucose Level 107 mg/dL (70-99) 88 mg/dL (70-99) Calcium Level 9.3 mg/dL (8.5-10.1) 8.9 mg/dL (8.5-10.1) Magnesium Level 2.0 mg/dL (1.8-2.4) Total Bilirubin 0.8 mg/dL (0.2-1.0) Direct Bilirubin 0.1 mg/dL (0.0-0.2) Aspartate Amino Transf (AST/SGOT) 18 U/L (15-37) Alanine Aminotransferase (ALT/SGPT) 48 U/L (16-63) Alkaline Phosphatase 85 U/L (46-116) Creatine Kinase 117 U/L (39-308) Creatine Kinase MB (Mass) 0.7 ng/mL (0.0-3.6) Creatine Kinase MB Relative Index 0.6 % (0-4) Troponin I Quantitative < 0.017 ng/mL (0.000-0.055) < 0.017 ng/mL (0.000-0.055) < 0.017 ng/mL (0.000-0.055) DV-Ccu-M-Type Natriuretic Peptide 11 pg/mL (0-124) Total Protein 7.5 g/dL (6.4-8.2) Albumin 4.0 g/dL (3.4-5.0) Lipase 181 U/L (73-393) Thyroid Stimulating Hormone (TSH) 0.930 uIU/mL (0.358-3.74) Urine Opiates Screen Neg (NEG) Urine Methadone Screen Neg (NEG) Urine Barbiturates Neg (NEG) Urine Phencyclidine Screen Neg (NEG) Urine Amphetamine/Methamphetamine Neg (NEG) Urine Benzodiazepines Screen Neg (NEG) Urine Cocaine Screen Neg (NEG) Urine Cannabinoids Screen Pos (NEG) Urine Ethyl Alcohol Neg (NEG) Triglycerides Level 79 mg/dL (0-150) Cholesterol Level 199 mg/dL (0-200) LDL Cholesterol, Calculated 141 mg/dL (0-100) VLDL Cholesterol, Calculated 16 mg/dL (0-40) Non-HDL Cholesterol Calculated 157 mg/dL (0-129) HDL Cholesterol 42 mg/dL (40-60) Cholesterol/HDL Ratio 4.7 Review of Systems Review of Systems no fever, chills, sob or chest pain Assessment and Plan Assessmemt and Plan Problems Medical Problems: (1) Chest pain Status: Acute Problems: Comment Review of Relevant I have reviewed the following items abdiel (where applicable) has been applied. Labs Laboratory Tests Test 08/19/16 12:55 08/19/16 21:20 08/20/16 03:40 White Blood Count 7.1 x10^3/uL (4.0-11.0) 6.1 x10^3/uL (4.0-11.0) Red Blood Count 5.10 x10^6/uL (4.30-5.70) 4.84 x10^6/uL (4.30-5.70) Hemoglobin 15.1 g/dL (13.0-17.5) 14.2 g/dL (13.0-17.5) Hematocrit 43.6 % (39.0-53.0) 41.7 % (39.0-53.0) Mean Corpuscular Volume 86 fL (79-100) 86 fL (79-100) Mean Corpuscular Hemoglobin 30 pg (25-35) 29 pg (25-35) Mean Corpuscular Hemoglobin Concent 35 g/dL (31-37) 34 g/dL (31-37) Red Cell Distribution Width 13.2 % (11.5-14.5) 13.3 % (11.5-14.5) Platelet Count 255 x10^3/uL (140-400) 221 x10^3/uL (140-400) Neutrophils (%) (Auto) 62 % (31-73) 43 % (31-73) Lymphocytes (%) (Auto) 25 % (24-48) 42 % (24-48) Monocytes (%) (Auto) 8 % (0-9) 9 % (0-9) Eosinophils (%) (Auto) 4 % (0-3) 6 % (0-3) Basophils (%) (Auto) 1 % (0-3) 0 % (0-3) Neutrophils # (Auto) 4.4 x10^3uL (1.8-7.7) 2.7 x10^3uL (1.8-7.7) Lymphocytes # (Auto) 1.8 x10^3/uL (1.0-4.8) 2.6 x10^3/uL (1.0-4.8) Monocytes # (Auto) 0.5 x10^3/uL (0.0-1.1) 0.5 x10^3/uL (0.0-1.1) Eosinophils # (Auto) 0.3 x10^3/uL (0.0-0.7) 0.4 x10^3/uL (0.0-0.7) Basophils # (Auto) 0.1 x10^3/uL (0.0-0.2) 0.0 x10^3/uL (0.0-0.2) Urine Collection Type Unknown Urine Color Yellow Urine Clarity Clear Urine pH 6.5 Urine Specific [place] >=1.030 Urine Protein Negative mg/dL (NEG-TRACE) Urine Glucose (UA) Negative mg/dL (NEG) Urine Ketones (Stick) Negative mg/dL (NEG) Urine Blood Negative (NEG) Urine Nitrite Negative (NEG) Urine Bilirubin Negative (NEG) Urine Urobilinogen Dipstick 2.0 mg/dL (0.2 mg/dL) Urine Leukocyte Esterase Negative (NEG) Urine RBC 0 /HPF (0-2) Urine WBC 0 /HPF (0-4) Urine Squamous Epithelial Cells None /LPF Urine Bacteria 0 /HPF (0-FEW) Urine Mucus Slight /LPF Sodium Level 141 mmol/L (136-145) 141 mmol/L (136-145) Potassium Level 4.0 mmol/L (3.5-5.1) 4.0 mmol/L (3.5-5.1) Chloride Level 103 mmol/L (98-107) 105 mmol/L (98-107) Carbon Dioxide Level 30 mmol/L (21-32) 29 mmol/L (21-32) Anion Gap 8 (6-14) 7 (6-14) Blood Urea Nitrogen 15 mg/dL (8-26) 14 mg/dL (8-26) Creatinine 0.9 mg/dL (0.7-1.3) 0.8 mg/dL (0.7-1.3) Estimated GFR (Cockcroft-Gault) 97.8 112.0 Glucose Level 107 mg/dL (70-99) 88 mg/dL (70-99) Calcium Level 9.3 mg/dL (8.5-10.1) 8.9 mg/dL (8.5-10.1) Magnesium Level 2.0 mg/dL (1.8-2.4) Total Bilirubin 0.8 mg/dL (0.2-1.0) Direct Bilirubin 0.1 mg/dL (0.0-0.2) Aspartate Amino Transf (AST/SGOT) 18 U/L (15-37) Alanine Aminotransferase (ALT/SGPT) 48 U/L (16-63) Alkaline Phosphatase 85 U/L (46-116) Creatine Kinase 117 U/L (39-308) Creatine Kinase MB (Mass) 0.7 ng/mL (0.0-3.6) Creatine Kinase MB Relative Index 0.6 % (0-4) Troponin I Quantitative < 0.017 ng/mL (0.000-0.055) < 0.017 ng/mL (0.000-0.055) < 0.017 ng/mL (0.000-0.055) WI-Dms-E-Type Natriuretic Peptide 11 pg/mL (0-124) Total Protein 7.5 g/dL (6.4-8.2) Albumin 4.0 g/dL (3.4-5.0) Lipase 181 U/L (73-393) Thyroid Stimulating Hormone (TSH) 0.930 uIU/mL (0.358-3.74) Urine Opiates Screen Neg (NEG) Urine Methadone Screen Neg (NEG) Urine Barbiturates Neg (NEG) Urine Phencyclidine Screen Neg (NEG) Urine Amphetamine/Methamphetamine Neg (NEG) Urine Benzodiazepines Screen Neg (NEG) Urine Cocaine Screen Neg (NEG) Urine Cannabinoids Screen Pos (NEG) Urine Ethyl Alcohol Neg (NEG) Triglycerides Level 79 mg/dL (0-150) Cholesterol Level 199 mg/dL (0-200) LDL Cholesterol, Calculated 141 mg/dL (0-100) VLDL Cholesterol, Calculated 16 mg/dL (0-40) Non-HDL Cholesterol Calculated 157 mg/dL (0-129) HDL Cholesterol 42 mg/dL (40-60) Cholesterol/HDL Ratio 4.7 Laboratory Tests Test 08/19/16 12:55 08/19/16 21:20 08/20/16 03:40 White Blood Count 7.1 x10^3/uL (4.0-11.0) 6.1 x10^3/uL (4.0-11.0) Red Blood Count 5.10 x10^6/uL (4.30-5.70) 4.84 x10^6/uL (4.30-5.70) Hemoglobin 15.1 g/dL (13.0-17.5) 14.2 g/dL (13.0-17.5) Hematocrit 43.6 % (39.0-53.0) 41.7 % (39.0-53.0) Mean Corpuscular Volume 86 fL (79-100) 86 fL (79-100) Mean Corpuscular Hemoglobin 30 pg (25-35) 29 pg (25-35) Mean Corpuscular Hemoglobin Concent 35 g/dL (31-37) 34 g/dL (31-37) Red Cell Distribution Width 13.2 % (11.5-14.5) 13.3 % (11.5-14.5) Platelet Count 255 x10^3/uL (140-400) 221 x10^3/uL (140-400) Neutrophils (%) (Auto) 62 % (31-73) 43 % (31-73) Lymphocytes (%) (Auto) 25 % (24-48) 42 % (24-48) Monocytes (%) (Auto) 8 % (0-9) 9 % (0-9) Eosinophils (%) (Auto) 4 % (0-3) 6 % (0-3) Basophils (%) (Auto) 1 % (0-3) 0 % (0-3) Neutrophils # (Auto) 4.4 x10^3uL (1.8-7.7) 2.7 x10^3uL (1.8-7.7) Lymphocytes # (Auto) 1.8 x10^3/uL (1.0-4.8) 2.6 x10^3/uL (1.0-4.8) Monocytes # (Auto) 0.5 x10^3/uL (0.0-1.1) 0.5 x10^3/uL (0.0-1.1) Eosinophils # (Auto) 0.3 x10^3/uL (0.0-0.7) 0.4 x10^3/uL (0.0-0.7) Basophils # (Auto) 0.1 x10^3/uL (0.0-0.2) 0.0 x10^3/uL (0.0-0.2) Urine Collection Type Unknown Urine Color Yellow Urine Clarity Clear Urine pH 6.5 Urine Specific [place] >=1.030 Urine Protein Negative mg/dL (NEG-TRACE) Urine Glucose (UA) Negative mg/dL (NEG) Urine Ketones (Stick) Negative mg/dL (NEG) Urine Blood Negative (NEG) Urine Nitrite Negative (NEG) Urine Bilirubin Negative (NEG) Urine Urobilinogen Dipstick 2.0 mg/dL (0.2 mg/dL) Urine Leukocyte Esterase Negative (NEG) Urine RBC 0 /HPF (0-2) Urine WBC 0 /HPF (0-4) Urine Squamous Epithelial Cells None /LPF Urine Bacteria 0 /HPF (0-FEW) Urine Mucus Slight /LPF Sodium Level 141 mmol/L (136-145) 141 mmol/L (136-145) Potassium Level 4.0 mmol/L (3.5-5.1) 4.0 mmol/L (3.5-5.1) Chloride Level 103 mmol/L (98-107) 105 mmol/L (98-107) Carbon Dioxide Level 30 mmol/L (21-32) 29 mmol/L (21-32) Anion Gap 8 (6-14) 7 (6-14) Blood Urea Nitrogen 15 mg/dL (8-26) 14 mg/dL (8-26) Creatinine 0.9 mg/dL (0.7-1.3) 0.8 mg/dL (0.7-1.3) Estimated GFR (Cockcroft-Gault) 97.8 112.0 Glucose Level 107 mg/dL (70-99) 88 mg/dL (70-99) Calcium Level 9.3 mg/dL (8.5-10.1) 8.9 mg/dL (8.5-10.1) Magnesium Level 2.0 mg/dL (1.8-2.4) Total Bilirubin 0.8 mg/dL (0.2-1.0) Direct Bilirubin 0.1 mg/dL (0.0-0.2) Aspartate Amino Transf (AST/SGOT) 18 U/L (15-37) Alanine Aminotransferase (ALT/SGPT) 48 U/L (16-63) Alkaline Phosphatase 85 U/L (46-116) Creatine Kinase 117 U/L (39-308) Creatine Kinase MB (Mass) 0.7 ng/mL (0.0-3.6) Creatine Kinase MB Relative Index 0.6 % (0-4) Troponin I Quantitative < 0.017 ng/mL (0.000-0.055) < 0.017 ng/mL (0.000-0.055) < 0.017 ng/mL (0.000-0.055) VC-Sgd-Y-Type Natriuretic Peptide 11 pg/mL (0-124) Total Protein 7.5 g/dL (6.4-8.2) Albumin 4.0 g/dL (3.4-5.0) Lipase 181 U/L (73-393) Thyroid Stimulating Hormone (TSH) 0.930 uIU/mL (0.358-3.74) Urine Opiates Screen Neg (NEG) Urine Methadone Screen Neg (NEG) Urine Barbiturates Neg (NEG) Urine Phencyclidine Screen Neg (NEG) Urine Amphetamine/Methamphetamine Neg (NEG) Urine Benzodiazepines Screen Neg (NEG) Urine Cocaine Screen Neg (NEG) Urine Cannabinoids Screen Pos (NEG) Urine Ethyl Alcohol Neg (NEG) Triglycerides Level 79 mg/dL (0-150) Cholesterol Level 199 mg/dL (0-200) LDL Cholesterol, Calculated 141 mg/dL (0-100) VLDL Cholesterol, Calculated 16 mg/dL (0-40) Non-HDL Cholesterol Calculated 157 mg/dL (0-129) HDL Cholesterol 42 mg/dL (40-60) Cholesterol/HDL Ratio 4.7 Medications Current Medications Nitroglycerin (Nitrostat) 0.4 mg PRN Q5MIN PRN SL CP RATING > 1/10 Last administered on 08/19/16 13:21; Start 08/19/16 at 12:45; Stop 08/20/16 at 12:44 Morphine Sulfate 2 mg PRN Q15MIN PRN IV/SQ PAIN GREATER THAN 3/10 Last administered on 08/19/16 13:16; Start 08/19/16 at 12:45; Stop 08/20/16 at 09:46 ; Status DC Nitroglycerin (Nitrostat) 0.4 mg STK-MED ONCE SL ; Start 08/19/16 at 13:13; Stop 08/19/16 at 13:20; Status DC Morphine Sulfate 2 mg STK-MED ONCE .ROUTE ; Start 08/19/16 at 13:13; Stop at 13:20; Status DC Aspirin (Gregory Aspirin) 325 mg 1X ONCE PO Last administered on 08/19/16 15:20 ; Start 08/19/16 at 15:15; Stop 08/19/16 at 15:19; Status DC Ondansetron HCl (Zofran) 4 mg PRN Q8HRS PRN IV NAUSEA/VOMITING Last administered on 08/19/16 18:08; Start 08/19/16 at 15:15; Stop 08/20/16 at 15:14 Morphine Sulfate 2 mg PRN Q2HR PRN IV PAIN Last administered on 08/20/16 08:12 ; Start 08/19/16 at 15:15; Stop 08/20/16 at 09:46; Status DC Ibuprofen (Motrin) 600 mg 1X ONCE PO Last administered on 08/19/16 20:27; Start 08/19/16 at 18:30; Stop 08/19/16 at 18:43; Status DC Ibuprofen (Motrin) 400 mg PRN Q6HRS PRN PO INFLAMMATION; Start 08/19/16 at 18: 30 Acetaminophen (Tylenol) 650 mg PRN Q6HRS PRN PO FEVER; Start 08/20/16 at 09:45 Ondansetron HCl (Zofran) 4 mg PRN Q6HRS PRN IV NAUSEA/VOMITING; Start 08/20/16 at 09:45 Morphine Sulfate 2 mg PRN Q2HR PRN IV PAIN; Start 08/20/16 at 09:45 Tramadol HCl (Ultram) 50 mg PRN Q6HRS PRN PO PAIN; Start 08/20/16 at 09:45 Hydralazine HCl (Apresoline) 10 mg PRN Q4HRS PRN IVP ELEVATED BP, SEE COMMENTS ; Start 08/20/16 at 09:45 Docusate Sodium (Colace) 100 mg PRN DAILY PRN PO CONSTIPATION; Start 08/20/16 at 09:45 Naproxen (Naprosyn) 500 mg BID PO Last administered on 08/20/16t 11:39; Start 08/20/16 at 11:00 Active Scripts Active Cyclobenzaprine Hcl 10 Mg Tablet 1 Tab PO TID Naproxen 500 Mg Tablet.dr 1 Tab PO BID Doxycycline Hyclate 100 Mg Tablet 1 Tab PO BID Orphenadrine Citrate 100 Mg Tablet.er 100 Mg PO Q12HR Anaprox Ds (Naproxen Sodium) 550 Mg Tablet 550 Mg PO Q12HR Ibuprofen 600 Mg Tablet 600 Mg PO PRN Q6HRS PRN Reported Hydrochlorothiazide Tablet (Hydrochlorothiazide) 25 Mg Tablet 1 Tab PO DAILY Vitals/I & O Vital Sign - Last 24 Hours 08/19/16 08/19/16 08/19/16 08/19/16 13:21 13:22 14:30 16:30 Pulse 78 89 70 Resp 16 B/P (MAP) 174/93 146/77 (100) 147/88 (107) Pulse Ox 98 O2 Delivery Room Air Room Air 08/19/16 08/19/16 08/19/16 08/19/16 17:44 17:53 18:05 19:00 Temp 97.7 98.1 97.7 98.1 Pulse 67 71 Resp 18 18 B/P (MAP) 160/100 (120) 137/68 (91) Pulse Ox 91 100 O2 Delivery Room Air Room Air Room Air Room Air 08/19/16 08/19/16 08/19/16 08/19/16 20:00 23:00 23:02 23:32 Temp 98.1 98.1 Pulse 81 Resp 18 20 18 B/P (MAP) 131/71 (91) Pulse Ox 95 O2 Delivery Room Air Room Air Room Air Room Air 08/20/16 08/20/16 08/20/16 03:00 07:00 10:40 Temp 97.5 98.2 97.5 97.5 98.2 97.5 Pulse 59 60 72 Resp 18 18 18 B/P (MAP) 132/83 (99) 140/86 (104) 124/82 (96) Pulse Ox 97 98 97 O2 Delivery Room Air Room Air Room Air Intake and Output 08/19/16 08/19/16 08/20/16 15:00 23:00 07:00 Intake Total 240 ml 300 ml Balance 240 ml 300 ml ANDREW VENEGAS MD Aug 20, 2016 11:55
[2016-08-20] MEDS: ENOXAPARIN 40 MG/0.4 ML SYRINGE. SQ SCH (12:00)
[2016-08-20] MEDS ORDERED: clonazePAM 0.5 MG TABLET PO PRN (12:00)
--- NOTE | 2016-08-20 14:26 | CARD ---
APPROVED REPORT EXAM: Two-dimensional and M-mode echocardiogram with Doppler and color Doppler. Other Information Quality : Average Rhythm : NSR INDICATION Chest Pain 2D DIMENSIONS RVDd3.2 (2.9-3.5cm)Left Atrium(2D)3.1 (1.6-4.0cm) IVSd1.0 (0.7-1.1cm)Aortic Root(2D)3.3 (2.0-3.7cm) LVDd4.6 (3.9-5.9cm)LVOT Diameter2.3 (1.8-2.4cm) PWd1.0 (0.7-1.1cm)LVDs2.5 (2.5-4.0cm) FS (%) 35.4 %SV75.5 ml LVEF(%)66.8 (>50%) Aortic Valve AoV Peak José.157.7cm/sAoV VTI30.4cm AO Peak GR.9.9mmHgLVOT Peak José.145.2cm/s LVOT VTI 24.47cmAO Mean GR.5mmHg BERNICE (VMAX)3.97wy8HIP (VTI)3.43cm2 Mitral Valve MV E Ekiaazlo13.0cm/sMV DECEL [id number] MV A Mywwgszo11.9cm/sMV [id number] E/A Ratio1.6MV A Husjrhgn449lz MVA (PHT)3.21cm2 TDI E/Lateral E'4.9E/Medial E'6.3 Pulmonary Valve PV Peak Hunckflb835.2cm/sPV Peak Grad.4mmHg RVOT VTI14.9cm Tricuspid Valve TR P. Khftdhiw510np/sRAP TERJDKAD8xgCr TR Peak Gr.28isLvTECJ71obSe Pulmonary Vein S1 Yuwucxkf24.7cm/sD2 Dlwepsta51.5cm/s LEFT VENTRICLE The left ventricle is normal size. There is normal left ventricular wall thickness. Left ventricle sy stolic function is normal. The Ejection Fraction is 65-70%. There is normal LV segmental wall motion. The left ventricular diastolic function and filling is normal for age. There is no ventricular septa l defect visualized. RIGHT VENTRICLE The right ventricle is normal size. The right ventricular systolic function is normal. ATRIA The left atrium size is normal. The right atrium size is normal. The interatrial septum is intact wit h no evidence for an atrial septal defect or patent foramen ovale as noted on 2-D or Doppler imaging. AORTIC VALVE The aortic valve is grossly normal in structure and function. The aortic valve is trileaflet. Doppler and Color Flow revealed no significant aortic regurgitation. There is no significant aortic valvular stenosis. MITRAL VALVE The mitral valve leaflets are thickened. There is no mitral valve stenosis. Doppler and Color Flow re vealed no mitral valve regurgitation noted. TRICUSPID VALVE The tricuspid valve is normal in structure and function. Doppler and Color Flow revealed trace tricus pid regurgitation. The PA pressure was estimated at 33 mmHg. There is no tricuspid valve stenosis. PULMONIC VALVE The pulmonic valve is not well visualized. Doppler and Color Flow revealed no significant pulmonic va lvular regurgitation. There is no pulmonic valvular stenosis. GREAT VESSELS The aortic root is normal in size. The ascending aorta is normal in size. Normal pulmonary venous jordon w (Doppler). The IVC is normal in size and collapses >50% with inspiration. PERICARDIAL EFFUSION There is no evidence of significant pericardial effusion. Critical Notification Critical Value: No <Conclusion> Left ventricle systolic function is normal. The Ejection Fraction is 65-70%. There is normal LV segmental wall motion.
--- NOTE | 2016-08-20 14:46 | RAD ---
Indication: Popping and cracking in bilateral knees, left greater. Time of exam 1435 hours. Standing AP view of both knees was performed. The medial and lateral compartments are well maintained. The articular surfaces are smooth. No fracture or dislocation is seen. Impression: No acute feature is detected.
[2016-08-20 15:01] VITALS: BP 143/85
[2016-08-20] MEDS: IBUPROFEN 400 MG TABLET. PO PRN ×2 (15:10→15:11)
--- NOTE | 2016-08-20 15:58 | CARD ---
APPROVED REPORT INDICATION Chest Pain Reason : Patient complained of shortness of breath PROCEDURE The patient underwent an Exercise Stress Test using the Yadiel Protocol. Blood pressure, heart rate, a nd EKG were monitored. An Echocardiogram was performed by vehicle modification technician in four stages in quad fashion. At peak stress four se lected images were obtained and placed side by side with resting images for comparison. STRESS ECHO FINDINGS The resting Echocardiogram showed normal left ventricular contractility with an estimated Ejection Fr action of about 60 %. Normal augmentation of myocardial wall segments using a 16 segment model. Test Type: Exercise Stress Nurse/Tech: Leyda Pedraza R.N. Test Indications: c/p Cardiac History and Allergies: htn Medications: see ehr Medical History: see ehr Resting ECG: SR Resting Heart Rate: 77 bpm Resting Blood Pressure: 124/82mmHg Pretest Chest Pain: Typical angina Nurse/Tech Notes S1S2, lungs CTA, c/o chest tightness scale 2-3/10 Stress Symptoms Dyspnea,Fatigue, chest tightness did get up to 3-4/10by the end of exercise portion POST EXERCISE Reason for Termination: Reached target heart rate, Fatigue, Dyspnea Target HR: Yes Max HR: 182 bpm 97% of Maximum Predicted HR: 188 bpm Exercise duration: 12.01 min:sec, 4 Stage Exercise capacity: 12.8METs Max Blood Pressure: 180/90mmHg Blood Pressure response to exercise: Normal blood pressure response during stress. Heart Rate response to exercise: wnl Chest Pain: Yes. slight increase from baseline- see above notes Arrhythmia: No. ST Change: No. STRESS ECG Stress EKG shows no significant changes. Preliminary Notification Critical Value: No <Conclusion> Normal baseline and stress EKG. Normal LV function at rest and good augmentation at peak stress. Normal exercise capacity with 12.8 Mets. Low risk study
[2016-08-20 19:00] VITALS: BP 139/94
[2016-08-20 23:10] VITALS: BP 128/80
[2016-08-21 05:55] LABS: CALCIUM 8.9 mg/dL (8.5-10.1); CREATININE 0.7 mg/dL (0.7-1.3); GFR 130.7; POTASSIUM 4.3 mmol/L (3.5-5.1)
[2016-08-21 06:03] LABS: BASO % 0 % (0-3); EOS % 6 % (0-3); HEMATOCRIT 42.4 % (39.0-53.0); HEMOGLOBIN 14.4 g/dL (13.0-17.5); LYMPH # 2.5 x10^3/uL (1.0-4.8); LYMPH % 32 % (24-48); MEAN CORPUSCULAR HEMOGLOBIN 29 pg (25-35); MEAN CORPUSCULAR HGB CONC 34 g/dL (31-37); MEAN CORPUSCULAR VOLUME 86 fL (79-100); MONO % 8 % (0-9); NEUT % 54 % (31-73); PLATELET COUNT 222 x10^3/uL (140-400); RED BLOOD COUNT 4.91 x10^6/uL (4.30-5.70); RED CELL DISTRIBUTION WIDTH 13.3 % (11.5-14.5); WHITE BLOOD COUNT 7.8 x10^3/uL (4.0-11.0)
[2016-08-21 07:00] VITALS: BP 132/78
[2016-08-21] MEDS: NAPROXEN 500 MG TABLET PO SCH (08:36)
[2016-08-21] MEDS ORDERED: CLON0.5T3 PO (09:48)
[2016-08-21] MEDS ORDERED: HYDR25TA9 PO (09:48)
[2016-08-21] MEDS ORDERED: NAPR500T8 PO (09:48)
--- NOTE | 2016-08-21 10:40 | PDOC ---
PROGRESS NOTES Subjective Subjective He continues with left shoulder area and anterior chest wall pain. Objective Objective Vital Signs Date Time Temp Pulse Resp B/P (MAP) Pulse Ox O2 Delivery O2 Flow Rate FiO2 08/21/16 08:05 Room Air 08/21/16 07:00 97.7 72 20 132/78 (96) 98 97.7 Intake and Output 08/21/16 07:00 Intake Total 920 ml Output Total 200 ml Balance 720 ml Intake Oral 920 ml Output Urine Total 200 ml # Voids 5 Physical Exam Physical Exam He continues with tenderness to palpation over left sternoclavicular joint, pectoral muscles and anterior aspect of left shoulder and he had mild narrowing of medial aspect of left knee joint space. Assessment Assessment Problems Medical Problems: (1) Chest pain Status: Acute Plan Plan of [facility] with out patient follow up when medically stable. Comment Review of Relevant I have reviewed the following items abdiel (where applicable) has been applied. Labs Laboratory Tests Test 08/19/16 12:55 08/19/16 21:20 08/20/16 03:40 08/21/16 05:15 White Blood Count 7.1 x10^3/uL (4.0-11.0) 6.1 x10^3/uL (4.0-11.0) 7.8 x10^3/uL (4.0-11.0) Red Blood Count 5.10 x10^6/uL (4.30-5.70) 4.84 x10^6/uL (4.30-5.70) 4.91 x10^6/uL (4.30-5.70) Hemoglobin 15.1 g/dL (13.0-17.5) 14.2 g/dL (13.0-17.5) 14.4 g/dL (13.0-17.5) Hematocrit 43.6 % (39.0-53.0) 41.7 % (39.0-53.0) 42.4 % (39.0-53.0) Mean Corpuscular Volume 86 fL (79-100) 86 fL (79-100) 86 fL (79-100) Mean Corpuscular Hemoglobin 30 pg (25-35) 29 pg (25-35) 29 pg (25-35) Mean Corpuscular Hemoglobin Concent 35 g/dL (31-37) 34 g/dL (31-37) 34 g/dL (31-37) Red Cell Distribution Width 13.2 % (11.5-14.5) 13.3 % (11.5-14.5) 13.3 % (11.5-14.5) Platelet Count 255 x10^3/uL (140-400) 221 x10^3/uL (140-400) 222 x10^3/uL (140-400) Neutrophils (%) (Auto) 62 % (31-73) 43 % (31-73) 54 % (31-73) Lymphocytes (%) (Auto) 25 % (24-48) 42 % (24-48) 32 % (24-48) Monocytes (%) (Auto) 8 % (0-9) 9 % (0-9) 8 % (0-9) Eosinophils (%) (Auto) 4 % (0-3) 6 % (0-3) 6 % (0-3) Basophils (%) (Auto) 1 % (0-3) 0 % (0-3) 0 % (0-3) Neutrophils # (Auto) 4.4 x10^3uL (1.8-7.7) 2.7 x10^3uL (1.8-7.7) 4.2 x10^3uL (1.8-7.7) Lymphocytes # (Auto) 1.8 x10^3/uL (1.0-4.8) 2.6 x10^3/uL (1.0-4.8) 2.5 x10^3/uL (1.0-4.8) Monocytes # (Auto) 0.5 x10^3/uL (0.0-1.1) 0.5 x10^3/uL (0.0-1.1) 0.6 x10^3/uL (0.0-1.1) Eosinophils # (Auto) 0.3 x10^3/uL (0.0-0.7) 0.4 x10^3/uL (0.0-0.7) 0.4 x10^3/uL (0.0-0.7) Basophils # (Auto) 0.1 x10^3/uL (0.0-0.2) 0.0 x10^3/uL (0.0-0.2) 0.0 x10^3/uL (0.0-0.2) Urine Collection Type Unknown Urine Color Yellow Urine Clarity Clear Urine pH 6.5 Urine Specific [place] >=1.030 Urine Protein Negative mg/dL (NEG-TRACE) Urine Glucose (UA) Negative mg/dL (NEG) Urine Ketones (Stick) Negative mg/dL (NEG) Urine Blood Negative (NEG) Urine Nitrite Negative (NEG) Urine Bilirubin Negative (NEG) Urine Urobilinogen Dipstick 2.0 mg/dL (0.2 mg/dL) Urine Leukocyte Esterase Negative (NEG) Urine RBC 0 /HPF (0-2) Urine WBC 0 /HPF (0-4) Urine Squamous Epithelial Cells None /LPF Urine Bacteria 0 /HPF (0-FEW) Urine Mucus Slight /LPF Sodium Level 141 mmol/L (136-145) 141 mmol/L (136-145) 141 mmol/L (136-145) Potassium Level 4.0 mmol/L (3.5-5.1) 4.0 mmol/L (3.5-5.1) 4.3 mmol/L (3.5-5.1) Chloride Level 103 mmol/L (98-107) 105 mmol/L (98-107) 104 mmol/L (98-107) Carbon Dioxide Level 30 mmol/L (21-32) 29 mmol/L (21-32) 31 mmol/L (21-32) Anion Gap 8 (6-14) 7 (6-14) 6 (6-14) Blood Urea Nitrogen 15 mg/dL (8-26) 14 mg/dL (8-26) 15 mg/dL (8-26) Creatinine 0.9 mg/dL (0.7-1.3) 0.8 mg/dL (0.7-1.3) 0.7 mg/dL (0.7-1.3) Estimated GFR (Cockcroft-Gault) 97.8 112.0 130.7 Glucose Level 107 mg/dL (70-99) 88 mg/dL (70-99) 88 mg/dL (70-99) Calcium Level 9.3 mg/dL (8.5-10.1) 8.9 mg/dL (8.5-10.1) 8.9 mg/dL (8.5-10.1) Magnesium Level 2.0 mg/dL (1.8-2.4) Total Bilirubin 0.8 mg/dL (0.2-1.0) Direct Bilirubin 0.1 mg/dL (0.0-0.2) Aspartate Amino Transf (AST/SGOT) 18 U/L (15-37) Alanine Aminotransferase (ALT/SGPT) 48 U/L (16-63) Alkaline Phosphatase 85 U/L (46-116) Creatine Kinase 117 U/L (39-308) Creatine Kinase MB (Mass) 0.7 ng/mL (0.0-3.6) Creatine Kinase MB Relative Index 0.6 % (0-4) Troponin I Quantitative < 0.017 ng/mL (0.000-0.055) < 0.017 ng/mL (0.000-0.055) < 0.017 ng/mL (0.000-0.055) IV-Jhg-U-Type Natriuretic Peptide 11 pg/mL (0-124) Total Protein 7.5 g/dL (6.4-8.2) Albumin 4.0 g/dL (3.4-5.0) Lipase 181 U/L (73-393) Thyroid Stimulating Hormone (TSH) 0.930 uIU/mL (0.358-3.74) Urine Opiates Screen Neg (NEG) Urine Methadone Screen Neg (NEG) Urine Barbiturates Neg (NEG) Urine Phencyclidine Screen Neg (NEG) Urine Amphetamine/Methamphetamine Neg (NEG) Urine Benzodiazepines Screen Neg (NEG) Urine Cocaine Screen Neg (NEG) Urine Cannabinoids Screen Pos (NEG) Urine Ethyl Alcohol Neg (NEG) Triglycerides Level 79 mg/dL (0-150) Cholesterol Level 199 mg/dL (0-200) LDL Cholesterol, Calculated 141 mg/dL (0-100) VLDL Cholesterol, Calculated 16 mg/dL (0-40) Non-HDL Cholesterol Calculated 157 mg/dL (0-129) HDL Cholesterol 42 mg/dL (40-60) Cholesterol/HDL Ratio 4.7 HIV-1 Antibody Non reactive (Non Reactive) Laboratory Tests Test 08/21/16 05:15 White Blood Count 7.8 x10^3/uL (4.0-11.0) Red Blood Count 4.91 x10^6/uL (4.30-5.70) Hemoglobin 14.4 g/dL (13.0-17.5) Hematocrit 42.4 % (39.0-53.0) Mean Corpuscular Volume 86 fL (79-100) Mean Corpuscular Hemoglobin 29 pg (25-35) Mean Corpuscular Hemoglobin Concent 34 g/dL (31-37) Red Cell Distribution Width 13.3 % (11.5-14.5) Platelet Count 222 x10^3/uL (140-400) Neutrophils (%) (Auto) 54 % (31-73) Lymphocytes (%) (Auto) 32 % (24-48) Monocytes (%) (Auto) 8 % (0-9) Eosinophils (%) (Auto) 6 % (0-3) Basophils (%) (Auto) 0 % (0-3) Neutrophils # (Auto) 4.2 x10^3uL (1.8-7.7) Lymphocytes # (Auto) 2.5 x10^3/uL (1.0-4.8) Monocytes # (Auto) 0.6 x10^3/uL (0.0-1.1) Eosinophils # (Auto) 0.4 x10^3/uL (0.0-0.7) Basophils # (Auto) 0.0 x10^3/uL (0.0-0.2) Sodium Level 141 mmol/L (136-145) Potassium Level 4.3 mmol/L (3.5-5.1) Chloride Level 104 mmol/L (98-107) Carbon Dioxide Level 31 mmol/L (21-32) Anion Gap 6 (6-14) Blood Urea Nitrogen 15 mg/dL (8-26) Creatinine 0.7 mg/dL (0.7-1.3) Estimated GFR (Cockcroft-Gault) 130.7 Glucose Level 88 mg/dL (70-99) Calcium Level 8.9 mg/dL (8.5-10.1) Medications Current Medications Nitroglycerin (Nitrostat) 0.4 mg PRN Q5MIN PRN SL CP RATING > 1/10 Last administered on 08/19/16t 13:21; Start 08/19/16 at 12:45; Stop 08/20/16 at 12:44 ; Status DC Morphine Sulfate 2 mg PRN Q15MIN PRN IV/SQ PAIN GREATER THAN 3/10 Last administered on 08/19/16 13:16; Start 08/19/16 at 12:45; Stop 08/20/16 at 09:46 ; Status DC Nitroglycerin (Nitrostat) 0.4 mg STK-MED ONCE SL ; Start 08/19/16 at 13:13; Stop 08/19/16 at 13:20; Status DC Morphine Sulfate 2 mg STK-MED ONCE .ROUTE ; Start 08/19/16 at 13:13; Stop at 13:20; Status DC Aspirin (Gregory Aspirin) 325 mg 1X ONCE PO Last administered on 08/19/16 15:20 ; Start 08/19/16 at 15:15; Stop 08/19/16 at 15:19; Status DC Ondansetron HCl (Zofran) 4 mg PRN Q8HRS PRN IV NAUSEA/VOMITING Last administered on 08/19/16 18:08; Start 08/19/16 at 15:15; Stop 08/20/16 at 15:14 ; Status DC Morphine Sulfate 2 mg PRN Q2HR PRN IV PAIN Last administered on 08/20/16 08:12 ; Start 08/19/16 at 15:15; Stop 08/20/16 at 09:46; Status DC Ibuprofen (Motrin) 600 mg 1X ONCE PO Last administered on 08/19/16 20:27; Start 08/19/16 at 18:30; Stop 08/19/16 at 18:43; Status DC Ibuprofen (Motrin) 400 mg PRN Q6HRS PRN PO INFLAMMATION Last administered on 15:10; Start 08/19/16 at 18:30 Acetaminophen (Tylenol) 650 mg PRN Q6HRS PRN PO FEVER; Start 08/20/16 at 09:45 Ondansetron HCl (Zofran) 4 mg PRN Q6HRS PRN IV NAUSEA/VOMITING; Start 08/20/16 at 09:45 Morphine Sulfate 2 mg PRN Q2HR PRN IV PAIN; Start 08/20/16 at 09:45 Tramadol HCl (Ultram) 50 mg PRN Q6HRS PRN PO PAIN; Start 08/20/16 at 09:45 Hydralazine HCl (Apresoline) 10 mg PRN Q4HRS PRN IVP ELEVATED BP, SEE COMMENTS ; Start 08/20/16 at 09:45 Docusate Sodium (Colace) 100 mg PRN DAILY PRN PO CONSTIPATION; Start 08/20/16 at 09:45 Naproxen (Naprosyn) 500 mg BID PO Last administered on 08/21/16t 08:36; Start 08/20/16 at 11:00 Enoxaparin Sodium (Lovenox 40mg Syringe) 40 mg Q24H SQ ; Start 08/20/16 at 12:00 Clonazepam (KlonoPIN) 0.5 mg PRN TID PRN PO ANXIETY / AGITATION; Start at 12:00 Active Scripts Active Clonazepam 0.5 Mg Tablet 0.5 Mg PO PRN TID PRN Naproxen 500 Mg Tablet. 1 Tab PO BID Hydrochlorothiazide Tablet (Hydrochlorothiazide) 25 Mg Tablet 1 Tab PO DAILY Cyclobenzaprine Hcl 10 Mg Tablet 1 Tab PO TID Orphenadrine Citrate 100 Mg Tablet.er 100 Mg PO Q12HR Vitals/I & O Vital Sign - Last 24 Hours 08/20/16 08/20/16 08/20/16 08/20/16 10:40 15:01 19:00 20:00 Temp 97.5 97.5 98.3 97.5 97.5 98.3 Pulse 72 87 64 Resp 18 18 17 B/P (MAP) 124/82 (96) 143/85 (104) 139/94 (109) Pulse Ox 97 93 95 O2 Delivery Room Air Room Air Room Air Room Air 08/20/16 08/21/16 08/21/16 23:10 07:00 08:05 Temp 98.0 97.7 98.0 97.7 Pulse 67 72 Resp 20 20 B/P (MAP) 128/80 (96) 132/78 (96) Pulse Ox 97 98 O2 Delivery Room Air Room Air Room Air Intake and Output 08/20/16 08/20/16 08/21/16 15:00 23:00 07:00 Intake Total 350 ml 540 ml 30 ml Output Total 200 ml Balance 350 ml 540 ml -170 ml BRANDON GARCIA MD Aug 21, 2016 10:40
[2016-08-21 10:56] VITALS: BP 143/79
[2016-08-21] MEDS: ENOXAPARIN 40 MG/0.4 ML SYRINGE. SQ SCH (11:42)
--- NOTE | 2016-08-21 12:19 | PDOC3 ---
Discharge Summary [facility] Date of Admission: Aug 19, 2016 Discharge Date: Aug 21, 2016 Admitting Diagnosis chest pain w/ pressure, intermittent, 2/2 muscular skeletal pain left shoulder pain with tendonitis/muscle sprain bl fingers numbness, 2/2 carpel tunnel syndrome/neuropathy anxiety HTN Problems: Final Diagnosis CONSULTS card dr. [facility] Course Mr. Elder is a 31 old M, 3 jobs, working hard with labor work, comes for left side chest pain, with tenderness. also has left shoulder pain, knee pain ( XR neg). CE neg, echo neg. pt is very anxious, quit smoking, alcohol recently, and marijuana (still + in drug tox). no PCP. dc home with naproxen, 10pills of 0.5mg klonipin, asked him to find a pcp and may need anxiety treatment. dc time 40min. Physical Exam chest wall tenderness, left shoulder tenderness General: Alert, Oriented X3, Cooperative, No acute distress Heart: Regular rate, Normal S1, Normal S2, No murmurs Lungs: Clear Abdomen: Normal bowel sounds, Soft, No tenderness, No hepatosplenomegaly, No masses Extremities: No clubbing, No cyanosis, No edema, Normal pulses, No tenderness/ swelling, Other (He had tenderness to palpation over left shoulder anterior aspect,over left pectoral muscles and over left sternoclavicular joint.He had mild crepitus on ROM of left knee without any effusion or laxity of knee joint collateral ligaments or tenderness to palpation.) Skin: No breakdown Patient History: Problems: Disposition home CONDITION AT DISCHARGE: Improved Diet regular Scheduled Cyclobenzaprine Hcl (Cyclobenzaprine Hcl), 1 TAB PO TID Hydrochlorothiazide (Hydrochlorothiazide Tablet ), 1 TAB PO DAILY Naproxen (Naproxen), 1 TAB PO BID Orphenadrine Citrate (Orphenadrine Citrate), 100 MG PO Q12HR Scheduled PRN Clonazepam (Clonazepam), 0.5 MG PO PRN TID PRN for ANXIETY / AGITATION Discontinued Medications Doxycycline Hyclate (Doxycycline Hyclate), 1 TAB PO BID Ibuprofen (Ibuprofen), 600 MG PO PRN Q6HRS PRN for INFLAMMATION Naproxen Sodium (Anaprox Ds), 550 MG PO Q12HR Follow Up pcp in 2 weeks ANDREW VENEGAS MD Aug 21, 2016 12:19
== END 2016-08-21 13:12 | disposition home or self-care (01) ==
LOC: ER 10:52 → INTOOBSV 14:50 → 5 SOUTH 14:50
PROVIDERS: ADMIT Internal Medicine; ATTEND Internal Medicine
DX: R07.89 Other chest pain (principal); M25.512 Pain in left shoulder; M75.92 Shoulder lesion, unspecified, left shoulder; E78.5 Hyperlipidemia, unspecified; I10 Essential (primary) hypertension; M54.5 Low back pain; F12.90 Cannabis use, unspecified, uncomplicated; F41.9 Anxiety disorder, unspecified; G62.9 Polyneuropathy, unspecified; Z82.49 Family history of ischemic heart disease and other diseases of the circulatory system; Z83.3 Family history of diabetes mellitus
CPT/HCPCS: 36415; 71010; 73562; 73565; 80048; 80061; 80076; 81001; 82553; 83690; 83735; 83880; 84443; 84484; 85027; 86703; 93005; 93017; 93306; 93350; 96374; 96375; 96376; 99285; G0378; G0481; J2270; J2405; G0379

== ENCOUNTER 2016-11-22 08:55 | Emergency (ER) | payer SELFPAY ==
[~2016-11-22] VITALS: Ht 182.9 cm; Wt 98.9 kg
[~2016-11-22 08:55] MED LIST changes: +CLON0.5T3 PO; +NAPR-682 PO; -NAPR550T PO
[2016-11-22 09:04] VITALS: BP 137/80
--- NOTE | 2016-11-22 09:21 | RAD ---
Examination: 3 views of the right foot History: History of pain Comparison: None available Findings: The alignment of the tarsal bones, tarsometatarsal joints, metatarsophalangeal joints, interphalangeal joint grossly appears unremarkable. There is no obvious acute fracture identified. Impression: No acute osseous findings.
--- NOTE | 2016-11-22 09:35 | PHYS DOC ---
Past Medical History Past Medical History: Hypertension, STD Additional Past Medical Histor: HERPES Past Surgical History: No Surgical History Additional Past Surgical Histo: WISDOM TEETH Alcohol Use: Occasionally Drug Use: Marijuana Adult General Chief Complaint Chief Complaint: FOOT INJURY PAIN HPI HPI Patient is a 31 year old male with history of hypertension who presents with fall out of 10 throbbing pain on the right foot worse on weight-bearing that began this morning when he woke up. Patient states he does a job where he is on his feet for long hours and this could have aggravated his pain. Patient denies any injury. Review of Systems Review of Systems Constitutional: Denies fever or chills [] Musculoskeletal: Right foot pain Integument: Denies rash or skin lesions [] Neurologic: Denies headache, focal weakness or sensory changes [] Allergies Allergies Allergies Coded Allergies Type Severity Reaction Last Updated Verified No Known Drug Allergies 04/19/14 No Physical Exam Physical Exam Constitutional: Well developed, well nourished, no acute distress, non-toxic appearance. [] Skin: Warm, dry, no erythema, no rash. [] Back: No tenderness, no CVA tenderness. [] Extremities: Right foot with no obvious deformity. Slight tenderness on the arc of the right foot, no pain or tenderness on the navicular bone or the base of the fifth metatarsal of the right foot. Full range of motion to the right foot and toes. +2 right pedal pulse. Cap refill less than 2 seconds the right toes. Neurologic: Alert and oriented X 3, normal motor function, normal sensory function, no focal deficits noted. [] Psychologic: Affect normal, judgement normal, mood normal. [] Current Patient Data Vital Signs Vital Signs Date Time Temp Pulse Resp B/P (MAP) Pulse Ox O2 Delivery O2 Flow Rate FiO2 11/22/16 09:04 97.8 67 20 98 Room Air 97.8 EKG EKG [] Radiology/Procedures Radiology/Procedures [] Course & Med Decision Making Course & Med Decision Making Pertinent Labs and Imaging studies reviewed. (See chart for details) Patient is in the ED with right foot pain with no known injury. Right foot x- rays interpreted by radiologist were negative for any acute findings. Patient likely has plantar fasciitis. We talked about good insoles/support for the issues. We talked about following up with orthopedic doctor. Naproxen for pain. Ice elevation encouraged. Dragon Disclaimer Dragon Disclaimer This electronic medical record was generated, in whole or in part, using a voice recognition dictation system. Departure Departure Impression: Primary Impression: Plantar fasciitis of right foot Disposition: HOME, SELF-CARE Condition: STABLE Referrals: NO PCP (PCP) MARLON BRAMBILA MD follow up in one week Patient Instructions: Plantar Fasciitis (Heel Spur Syndrome) with Rehab- [facility] Additional Instructions: You seen with right foot pain suspicious of plantar fasciitis of the right foot. Consider buying supportive insoles for your shoes. Ice and elevate the affected extremity. Take anti-inflammatories or Tylenol as needed for pain. Scripts Naproxen (NAPROXEN) 500 Mg Tablet.dr 1 TAB PO BID, #30 TAB 0 Refills Prov: MIAN SHELLEY APRN 11/22/16 MIAN SHELLEY APRN Nov 22, 2016 09:34
[2016-11-22] MEDS ORDERED: NAPR500T8 PO (09:42)
== END 2016-11-22 09:50 | disposition home or self-care (01) ==
LOC: ER 08:55
DX: M72.2 Plantar fascial fibromatosis (principal); I10 Essential (primary) hypertension; F12.10 Cannabis abuse, uncomplicated
CPT/HCPCS: 73630; 99284